=== PATIENT | female | born 1965 | race Caucasian/White ===

== ENCOUNTER 2017-12-11 08:03 | Emergency (ER) | payer OTHER ==
--- NOTE | 2017-12-11 09:28 | UC ---
Neck Pain HPI - HPI Summary HPI Summary: 3 days of bilateral neck pain and headache. Reports some intermittent tingling in both her hands. She denies chest pain, shortness of breath, nausea, sweats, fever. Had a similar episode in September 2017 and saw her PCP. Was given baclofen which did not help. She has tried ibuprofen with no effect. Patient has a history of migraine headaches and takes Excedrin at least 3 times daily every day and has done so for years. 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 Patient has had a cardiac workup in the past and reports everything was okay. - History of Current Complaint Chief Complaint: UCHeadaonelia Stated Complaint: HEADACHE JAW PAIN NECK PAIN Time Seen by Provider: 12/11/17 08:10 Hx Obtained From: Patient Onset/Duration: Gradual Onset, Lasting Days, Still Present Severity: Moderate Pain Intensity: 6 Pain Scale Used: 0-10 Numeric Character: Aching, Stiff Aggravating Factors: Movement Alleviating Factors: Nothing Associated Signs & Symptoms: Positive: Headache, Paresthesia - Allergies/Home Medications Allergies/Adverse Reactions: Allergies Allergy/AdvReac Type Severity Reaction Status Date / Time No Known Allergies Allergy Verified 12/11/17 08:23 Home Medications: Home Medications Escitalopram Oxalate [Lexapro 10 mg] 10 mg PO DAILY 12/11/17 [History Confirmed 12/11/17] Ibuprofen TAB* [Motrin TAB* 600 MG] 600 mg PO Q6H PRN 12/11/17 [History Confirmed 12/11/17] PMH/Surg Hx/FS Hx/Imm Hx Neurological History: Migraine Psychological History: Anxiety Other History Of: Negative For: Anticoagulant Therapy - Surgical History Surgical History: Yes Surgery Procedure, Year, and Place: hernia repair, cyst removal - Family History Known Family History: Positive: None Negative: Cardiac Disease, Hypertension - Social History Alcohol Use: Rare Substance Use Type: None Smoking Status (MU): Light Every Day Tobacco Smoker Type: Cigarettes Amount Used/How Often: 2 cig/ day Have You Smoked in the Last Year: Yes - July 2015 Household Exposure Type: Cigarettes Review Of Systems Constitutional: Positive: Negative Skin: Positive: Negative Respiratory: Positive: Negative Cardiovascular: Positive: Negative Gastrointestinal: Positive: Negative Musculoskeletal: Positive: Myalgia Neurological: Positive: Headache, Paresthesia All Other Systems Reviewed And Are Negative: Yes Physical Exam Triage Information Reviewed: Yes Appearance: Well-Appearing, No Pain Distress, Well-Nourished Vital Signs: Initial Vital Signs Temp 98.3 F 12/11/17 08:26 Pulse 62 12/11/17 08:26 Resp 18 12/11/17 08:26 BP 127/62 12/11/17 08:26 Pulse Ox 97 12/11/17 08:26 Vital Signs Reviewed: Yes Eyes: Positive: Conjunctiva Clear ENT: Positive: Hearing grossly normal, Pharynx normal, TMs normal Neck: Positive: Supple, No Lymphadenopathy, Other: - TTP BILATERAL TRAPEZIUS Respiratory Exam: Normal Cardiovascular Exam: Normal Abdomen Description: Positive: Nontender, Soft Musculoskeletal: Positive: ROM Intact, No Edema, Other: - NEG SPURLINGS Neurological: Positive: Alert, Other: - NEG TINELS, NEG PHALENS Psychological: Positive: Age Appropriate Behavior Skin: Negative: rashes Diagnostics - Radiology C-SPINE XRAYS Xray Interpretation: Positive (See Comments) - 1. Old C7 spinous process fracture. 2. Advanced C5-C6 and C6-C7 degenerative spondylosis and facet joint osteoarthritis. 3. Significant osseous foraminal stenosis at C6-C7 on the LEFT. Radiology Interpretation Completed By: Radiologist - EKG Cardiac Rate: Bradycardia - 55BPM Cardiac Rhythm: Sinus: Normal Ectopy: None ST Segment: Normal Neck Pain Course/Dx - Course Course Of Treatment: Discussed with patient my concern for underlying cardiac etiology of her symptoms - although admittedly low suspicion. Advised transfer to ED for further evaluation. Patient declines. Patient understands that we are unable to adequately do a cardiac evaluation here and that declining transfer to the ED may lead to respiratory distress, cardiac arrest, / disability. - Differential Dx/Diagnosis Provider Diagnoses: 1. ADVANCED OSTEOARTHRITIS OF THE NECK WITH RADICULOPATHY. 2. MEDICATION OVERUSE HEADACHE Discharge - Discharge Plan Condition: Stable Disposition: HOME Prescriptions: Cyclobenzaprine TAB* [Flexeril TAB*] 10 mg PO BID PRN #30 tab PRN Reason: Pain Patient Education Materials: Osteoarthritis (ED), Cervical Spinal Stenosis (ED) , Cervical Radiculopathy (ED), Degenerative Disc Disease (ED) Referrals: Vic Chopra, STRIKE OPERATIONS OFFICER [Primary Care Provider] - (KEEP YOUR APPT NEXT WEEK) Additional Instructions: YOU HAVE ADVANCED DEGENERATIVE CHANGES IN YOUR NECK. THIS IS LIKELY CAUSING YOUR SYMPTOMS OF PAIN, STIFFNESS AND TINGLING. WILL TRY FLEXERIL AND PHYSICAL THERAPY. CONSIDER EVAL BY THE [facility] IN [place]. [facility] [address] [place], [place] [id number] YOU ALSO SEEM TO HAVE MEDICATION OVERUSE HEADACHES. YOU MUST STOP TAKING PAIN RELIEVERS CHRONICALLY IN ORDER TO PREVENT THESE. MEDICATION OVERUSE HEADACHE -Medication overuse headache (MOH) is a headache occurring on 15 or more days per month developing as a consequence of regular overuse of acute or symptomatic headache medication for more than 3 months. It usually, but not invariably, resolves after the overuse is stopped. -The precise mechanisms that lead to MOH are still uncertain. However, multiple factors seem to play a role. These include: Genetic predisposition Central sensitization of pain processing Biobehavioral factors -The prevalence of MOH in the general population is approximately 1 to 2 percent , and is higher in women than in men. Migraine is the most common primary headache disorder associated with MOH. -All acute symptomatic medications used to treat headaches have the potential for causing MOH. The risk for MOH appears to vary but is associated with: - opioids - butalbital-containing combination analgesics - aspirin/acetaminophen/caffeine combinations - triptans - nonsteroidal antiinflammatory drugs -The development of MOH is typically preceded by an episodic headache disorder, usually migraine or tension-type headache, that has been treated with frequent and excessive amounts of acute symptomatic medications. MOH often manifests as a headache that is present or develops upon awakening, and commonly occurs daily or nearly daily. -The diagnosis of MOH is based upon clinical impression. A history of analgesic use averaging more than two to three days per week in association with chronic daily headache is suggestive. GO TO ER WITHOUT FAIL IF YOU DEVELOP CHEST PAIN, SHORTNESS OF BREATH, NAUSEA, SWEATS, DIZZINESS OR ANY OTHER CONCERNING SYMPTOMS.
--- NOTE | 2017-12-11 09:54 | RAD ---
Indication: Remote history of C6 spinous process fracture. Headache, jaw pain, neck pain. Comparison: No relevant prior exams available on the [facility] PACS for comparison. Technique: AP, open-mouth odontoid, lateral, and oblique views cervical spine. Report: Straightening relative to normal cervical lordosis. Old C7 spinous process fracture with persistent conspicuous fracture plane. No additional fracture evident. Advanced degenerative spondylosis at C5-C6 and C6-C7. Facet joint osteoarthritis most prominent in the same distribution. Uncinate process spurring and facet joint osteoarthritis results in significant osseous foraminal stenosis at C6-C7 on the LEFT. Unremarkable prevertebral soft tissue contours. IMPRESSION: 1. Old C7 spinous process fracture. 2. Advanced C5-C6 and C6-C7 degenerative spondylosis and facet joint osteoarthritis. 3. Significant osseous foraminal stenosis at C6-C7 on the LEFT.
[2017-12-11 10:50] VITALS: BP 138/74
== END 2017-12-11 10:49 | disposition home or self-care (01) ==
LOC: UCEAST 08:03
DX: M47.22 Other spondylosis with radiculopathy, cervical region (principal); G44.40 Drug-induced headache, not elsewhere classified, not intractable; R20.2 Paresthesia of skin; R00.1 Bradycardia, unspecified; F41.9 Anxiety disorder, unspecified; F17.210 Nicotine dependence, cigarettes, uncomplicated
CPT/HCPCS: 72050; 93005; 99202; G0463

== ENCOUNTER 2018-02-20 08:38 | Observation (INO) | payer OTHER ==
[~2018-02-20 08:38] MED LIST: Buffered Lidocaine 0.9% SYRIN* 5 ML/SYR SYRINGE INTRADERM ONE; Scopolamine 1.5 mg* PATCH TRANSDERM ONE
--- OUTSIDE RECORDS SUMMARY | 2018-02-20 08:43 | XMS REPORT ---
:1965 External Reference #:[id number] Author Organization [facility] Address [address] [address] Phone [phone] Care Team Providers Name Role Phone Risa Hatfield MD Primary Care Physician Unavailable Payers Type Date Identification Numbers Payment Provider Subscriber Commercial Policy Number: [id number] Tomás Dodson Group Number: [id number] [address] PayID: [id number] [place] [address] Problems Date Description Provider Status Onset: 02/08/2016 Anxiety Vic Chopra NP Active Onset: 01/22/2018 Cervical disc disorder Negrito Taylor MD Active Onset: 01/22/2018 Neck pain Negrito Taylor MD Active Family History Date Family Member(s) Problem(s) Comments Mother Heart Disease Stent 2017. 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 ETOH Use Denies alcohol use Smoking Patient is a current smoker, 1-2 cigarettes weekly smokes some days Daily Caffeine Consumes on average 3 cups of regular coffee per day Exercise Type/Frequency Exercises regularly Allergies, Adverse Reactions, Alerts Date Description Reaction Status Severity Comments 01/10/2016 NKDA active Medications Medication Date Status Form Strength Qnty SIG Indications Ordering Provider Cyclobenzaprine 01/23 Active Tablets 10mg 60tab take one Vic HCL s tablet by KELL Chopra mouth twice a day as needed Tramadol HCL 01/09 Active Tablets 50mg 60tab 1-2 tablets R10.9 Vic /2018 s every 8 Nav, BRANCH OFFICE ADMINISTRATOR hours as needed for pain. Diazepam 12/26 Active Tablets 5mg 30tab one tablet F41.9 Vic s twice daily Nav, BRANCH OFFICE ADMINISTRATOR as needed Escitalopram 08/19 Active Tablets 10mg 45tab 1 1/2 tabs F41.9 Vic Oxalate s daily. Nav, BRANCH OFFICE ADMINISTRATOR Carpal Tunnel 02/07 Active Misc 1unit wear splint R20.2 Vic Wrist s on right Nav, BRANCH OFFICE ADMINISTRATOR Stabilizer/Small wrist while /Medium sleeping. Excedrin Active Tablets 250-250-6 as needed Unknown Migraine 5mg Ibuprofen Active Capsules 200mg as needed Unknown / Pepto-Bismol Active Suspension 262mg/15M as needed Unknown L Emergen-C Active Packet as needed Unknown Vitamin C Meloxicam 12/26 Hx Tablets 7.5mg 60tab 1 -2 tablet M50.10 Vic s by mouth Nav, BRANCH OFFICE ADMINISTRATOR - once daily 01/22 as needed Gabapentin 12/26 Hx Capsules 300mg 60cap 1 by mouth M50.10 Vic s QHS. If Nav, BRANCH OFFICE ADMINISTRATOR - tolerating 01/22 well start taking 1 cap bid after 4 days. Baclofen 09/23 Hx Tablets 10mg 30tab take 1/2 Vic s tab every 8 Nav, BRANCH OFFICE ADMINISTRATOR - hours as 01/22 needed for muscle spasm Diazepam 02/14 Hx Tablets 2mg 60tab take 1 F41.9 Vic s tablet Nav, BRANCH OFFICE ADMINISTRATOR - three times 12/26 daily needed-anxi ety Paroxetine HCL 07/03 Hx Tablets ER 12.5mg 30tab one tablet N95.1 Vic ER 24HR s at at Nav, BRANCH OFFICE ADMINISTRATOR - bedtime 02/14 Tramadol HCL 07/03 Hx Tablets 50mg 120ta 1-2 tablets R10.9 Vic bs every 6 Nav, BRANCH OFFICE ADMINISTRATOR - hours as 05/06 needed for pain. Omeprazole 04/[address] 20mg 30cap 1 by mouth R10.10 Vic s once daily Nav, BRANCH OFFICE ADMINISTRATOR - 02/14 Hydroxyzine 02/07 Hx Capsules 25mg 60cap 1-2 caps by F41.9 Vic Pamoate /2015 s mouth four Nav, BRANCH OFFICE ADMINISTRATOR - times a day 02/14 as needed for anxiety Venlafaxine HCL 02/07 Hx Tablets 75mg 30tab take 1 N95.1 Vic s tablet Nav, BRANCH OFFICE ADMINISTRATOR - daily 07/03 Venlafaxine HCL 01/09 Hx Tablets 37.5mg 30tab 1 by mouth F41.9 Vic s every day Nav, BRANCH OFFICE ADMINISTRATOR - 02/07 Flonase Allergy Hx Suspension 50mcg/Act spray 1 Unknown Relief /0000 spray in - each 02/14 nostr /2016 twice daily Immunizations CPT Code Status Date Vaccine Lot # [id number] Given 08/19/2017 Influenza Virus Vaccine, Quadrivalent, Split, [id number] Preservative Free [id number] Given 07/03/2016 Influenza Virus Vaccine, Quadrivalent, Split, [id number] Preservative Free Vital Signs Date Vital Result Comment 02/03/2018 Height 63 inches 5'3" Weight 128.50 lb Heart Rate 71 /min BP Systolic 130 mmHg BP Diastolic 82 mmHg Body Temperature 96.3 F O2 % BldC Oximetry 98 % BMI (Body Mass Index) 22.8 kg/m2 01/23/2018 Weight 127.00 lb Heart Rate 75 /min BP Systolic 138 mmHg BP Diastolic 98 mmHg Body Temperature 96.9 F O2 % BldC Oximetry 92 % 01/22/2018 Height 63 inches 5'3" Weight 131.00 lb BP Systolic Sitting 140 mmHg BP Diastolic Sitting 100 mmHg Pain Level 9 BMI (Body Mass Index) 23.2 kg/m2 12/26/2017 Weight 131.50 lb Heart Rate 68 /min BP Systolic 126 mmHg BP Diastolic 70 mmHg Body Temperature 97.6 F O2 % BldC Oximetry 96 % 09/23/2017 Height 63.25 inches 5'3.25" Weight 129.00 lb Heart Rate 61 /min BP Systolic Sitting 120 mmHg BP Diastolic Sitting 80 mmHg Body Temperature 97.4 F O2 % BldC Oximetry 97 % BMI (Body Mass Index) 22.7 kg/m2 08/19/2017 Height 63.25 inches 5'3.25" Weight 127.00 lb Heart Rate 62 /min BP Systolic Sitting 136 mmHg BP Diastolic Sitting 94 mmHg BP Systolic Recheck 128 mmHg BP Diastolic Recheck 84 mmHg O2 % BldC Oximetry 99 % BMI (Body Mass Index) 22.3 kg/m2 05/06/2017 Weight 117.00 lb Heart Rate 68 /min BP Systolic Sitting 136 mmHg BP Diastolic Sitting 88 mmHg Pain Level 5 L buttock Peak Flow Meter 96 02/14/2017 Weight 124.00 lb Heart Rate 67 /min BP Systolic Sitting 134 mmHg BP Diastolic Sitting 84 mmHg O2 % BldC Oximetry 98 % 07/03/2016 Weight 121.00 lb Heart Rate 62 /min BP Systolic Sitting 136 mmHg BP Diastolic Sitting 84 mmHg Respiratory Rate 15 /min Body Temperature 98.5 F O2 % BldC Oximetry 99 % 04/10/2016 Weight 130.00 lb with shoes Heart Rate 71 /min BP Systolic Sitting 120 mmHg BP Diastolic Sitting 76 mmHg Body Temperature 96.9 F O2 % BldC Oximetry 99 % 03/07/2016 Weight 129.00 lb Heart Rate 54 /min BP Systolic Sitting 122 mmHg BP Diastolic Sitting 82 mmHg Respiratory Rate 15 /min Body Temperature 98.5 F 02/08/2016 Weight 127.25 lb Heart Rate 62 /min BP Systolic Sitting 132 mmHg BP Diastolic Sitting 80 mmHg O2 % BldC Oximetry 98 % 01/10/2016 Height 63 inches 5'3" Weight 122.50 lb Heart Rate 55 /min BP Systolic Sitting 134 mmHg BP Diastolic Sitting 78 mmHg Body Temperature 97.0 F O2 % BldC Oximetry 99 % BMI (Body Mass Index) 21.7 kg/m2 Results Test Date Test Result H/L Range Note Lipid Profile (Trig/Chol/HDL) 08/12/2017 Triglycerides 60 mg/dL 1 Cholesterol 171 mg/dL 2 HDL Cholesterol 74.8 mg/dL 3 LDL Cholesterol 84 mg/dL 4 Basic Metabolic Panel 08/12/2017 Sodium 139 mmol/L 133-145 Potassium 4.2 mmol/L 3.5-5.0 Chloride 106 mmol/L 101-111 Co2 Carbon Dioxide 30 mmol/L 22-32 Anion Gap 3 mmol/L 2-11 Glucose 82 mg/dL 70-100 Blood Urea Nitrogen 15 mg/dL 6-24 Creatinine 0.64 mg/dL 0.51-0.95 BUN/Creatinine Ratio 23.4 High 8-20 Calcium 9.1 mg/dL 8.6-10.3 Egfr Non- 96.7 >60 Egfr 124.4 >60 5 Laboratory test finding 04/10/2016 Amylase 32 U/L 29-103 Lipase 22 U/L 11.0-82.0 Comp Metabolic Panel 04/10/2016 Sodium 136 mmol/L 133-145 Potassium 4.3 mmol/L 3.5-5.0 Chloride 104 mmol/L 101-111 Co2 Carbon Dioxide 27 mmol/L 22-32 Anion Gap 5 mmol/L 2-11 Glucose 94 mg/dL 70-100 Blood Urea Nitrogen 14 mg/dL 6-24 Creatinine 0.63 mg/dL 0.51-0.95 BUN/Creatinine Ratio 22.2 High 8-20 Calcium 9.2 mg/dL 8.6-10.3 Total Protein 6.8 g/dL 6.4-8.9 Albumin 4.2 g/dL 3.2-5.2 Globulin 2.6 g/dL 2-4 Albumin/Globulin Ratio 1.6 1-3 Total Bilirubin 0.30 mg/dL 0.2-1.0 Alkaline Phosphatase 45 U/L 34-104 Alt 20 U/L 7-52 Ast 24 U/L 13-39 Egfr Non- 98.8 >60 Egfr 127.1 >60 6 CBC Auto Diff 04/10/2016 White Blood Count 6.4 10^3/uL 3.5-10.8 Red Blood Count 4.33 10^6/uL 4.0-5.4 Hemoglobin 13.1 g/dL 12.0-16.0 Hematocrit 39 % 35-47 Mean Corpuscular Volume 91 fL 80-97 Mean Corpuscular Hemoglobin 30 pg 27-31 Mean Corpuscular HGB Conc 33 g/dL 31-36 Red Cell Distribution Width 14 % 10.5-15 Platelet Count 258 10^3/uL 150-450 Mean Platelet Volume 9 um3 7.4-10.4 Abs Neutrophils 3.3 10^3/uL 1.5-7.7 Abs Lymphocytes 2.2 10^3/uL 1.0-4.8 Abs Monocytes 0.7 10^3/uL 0-0.8 Abs Eosinophils 0.2 10^3/uL 0-0.6 Abs Basophils 0.1 10^3/uL 0-0.2 Abs Nucleated RBC 0 10^3/uL Granulocyte % 52.1 % 38-83 Lymphocyte % 34.1 % 25-47 Monocyte % 10.2 % High 1-9 Eosinophil % 2.5 % 0-6 Basophil % 1.1 % 0-2 Nucleated Red Blood Cells % 0.1 Ua Routine 03/07/2016 Ua Specific [place] 1.015 Ua PH 5 Ua Color yellow Ua Appera clear Ua WBC neg Ua Protein neg Ua Glucose neg Ua Ketones neg Ua Bilirubin neg Ua Urobilinogen neg Ua Nitrite neg Ua Occult Blood neg Comp Metabolic Panel 01/16/2016 Sodium 136 mmol/L 133-145 Potassium 4.1 mmol/L 3.5-5.0 Chloride 105 mmol/L 101-111 Co2 Carbon Dioxide 25 mmol/L 22-32 Anion Gap 6 mmol/L 2-11 Glucose 98 mg/dL 70-100 Blood Urea Nitrogen 16 mg/dL 6-24 Creatinine 0.67 mg/dL 0.51-0.95 BUN/Creatinine Ratio 23.9 High 8-20 Calcium 9.5 mg/dL 8.6-10.3 Total Protein 7.0 g/dL 6.4-8.9 Albumin 4.5 g/dL 3.2-5.2 Globulin 2.5 g/dL 2-4 Albumin/Globulin Ratio 1.8 1-3 Total Bilirubin 0.40 mg/dL 0.2-1.0 Alkaline Phosphatase 42 U/L 34-104 Alt 16 U/L 7-52 Ast 20 U/L 13-39 Egfr Non- 92.4 >60 Egfr 118.9 >60 7 Laboratory test finding 01/16/2016 TSH (Thyroid Stim Horm) 0.83 ?IU/mL 0.34-5.60 8 CBC Auto Diff 01/16/2016 White Blood Count 6.4 10^3/uL 3.5-10.8 Red Blood Count 4.50 10^6/uL 4.0-5.4 Hemoglobin 13.6 g/dL 12.0-16.0 Hematocrit 41 % 35-47 Mean Corpuscular Volume 91 fL 80-97 Mean Corpuscular Hemoglobin 30 pg 27-31 Mean Corpuscular HGB Conc 33 g/dL 31-36 Red Cell Distribution Width 14 % 10.5-15 Platelet Count 261 10^3/uL 150-450 Mean Platelet Volume 9 um3 7.4-10.4 Abs Neutrophils 3.6 10^3/uL 1.5-7.7 Abs Lymphocytes 1.9 10^3/uL 1.0-4.8 Abs Monocytes 0.5 10^3/uL 0-0.8 Abs Eosinophils 0.3 10^3/uL 0-0.6 Abs Basophils 0 10^3/uL 0-0.2 Abs Nucleated RBC 0 10^3/uL Granulocyte % 56.2 % 38-83 Lymphocyte % 30.5 % 25-47 Monocyte % 8.1 % 1-9 Eosinophil % 4.6 % 0-6 Basophil % 0.6 % 0-2 Nucleated Red Blood Cells % 0 Laboratory test finding 01/16/2016 Vitamin D Total 25(Oh) 39.1 ng/mL 30- 50 9 Lipid Profile (Trig/Chol/HDL) 01/16/2016 Triglycerides 67 mg/dL 10 Cholesterol 179 mg/dL 11 HDL Cholesterol 82.0 mg/dL 12 LDL Cholesterol 84 mg/dL 13 1 Desirable: <150 Borderline High: 150-199 High: 200-499 Very High: >500 2 Desirable: <200 Borderline High: 200-239 High: >239 3 Low: <40 Desirable: 40-60 High: >60 4 Desirable: <100 Near Optimal: 100-129 Borderline High: 130-159 High: 160-189 Very High: >189 5 Because ethnic data is not always readily available, this report includes an eGFR for both -Americans and non- Americans. The National Kidney Disease Education Program (NKDEP) does not endorse the use of the MDRD equation for patients that are not between the ages of 18 and 70, are , have extremes of body size, muscle mass, or nutritional status, or are non- or non-. According to the National Kidney Foundation, irrespective of diagnosis, the stage of the disease is based on the level of kidney function: Stage Description GFR(mL/min/1.73 m(2)) 1 Kidney damage with normal or decreased GFR 90 2 Kidney damage with mild decrease in GFR 60-89 3 Moderate decrease in GFR 30-59 4 Severe decrease in GFR 15-29 5 Kidney failure <15 (or dialysis) 6 Because ethnic data is not always readily available, this report includes an eGFR for both -Americans and non- Americans. The National Kidney Disease Education Program (NKDEP) does not endorse the use of the MDRD equation for patients that are not between the ages of 18 and 70, are , have extremes of body size, muscle mass, or nutritional status, or are non- or non-. According to the National Kidney Foundation, irrespective of diagnosis, the stage of the disease is based on the level of kidney function: Stage Description GFR(mL/min/1.73 m(2)) 1 Kidney damage with normal or decreased GFR 90 2 Kidney damage with mild decrease in GFR 60-89 3 Moderate decrease in GFR 30-59 4 Severe decrease in GFR 15-29 5 Kidney failure <15 (or dialysis) 7 Because ethnic data is not always readily available, this report includes an eGFR for both -Americans and non- Americans. The National Kidney Disease Education Program (NKDEP) does not endorse the use of the MDRD equation for patients that are not between the ages of 18 and 70, are , have extremes of body size, muscle mass, or nutritional status, or are non- or non-. According to the National Kidney Foundation, irrespective of diagnosis, the stage of the disease is based on the level of kidney function: Stage Description GFR(mL/min/1.73 m(2)) 1 Kidney damage with normal or decreased GFR 90 2 Kidney damage with mild decrease in GFR 60-89 3 Moderate decrease in GFR 30-59 4 Severe decrease in GFR 15-29 5 Kidney failure <15 (or dialysis) 8 FASTING 10 HOUR 9 FASTING 10 HOUR 10 Desirable <150 Borderline high 150-199 High 200-499 Very High >500 11 Desirable <200 Borderline high 200-239 High >239 12 Low <40 Desirable: 40-60 High: >60 13 Desirable: <100 mg/dL Near Optimal: 100-129 mg/dL Borderline High: 130-159 mg/dL High: 160-189 mg/dL Very High: >189 mg/dL Procedures Date CPT Code Description Status Comment 09/11/2017 Mammogram Completed 08/08/2016 Colonoscopy Completed 05/23/2016 Colonoscopy Completed 01/24/2016 13494 Holter Monitor Review (24 hr)dr kang & Completed interp only 01/24/2016 69588 ECG Monitor/Recording W/Visual Completed Superimposition Scanning 01/23/2016 87038 ECG Monitor/Recording W/Visual Completed Superimposition Scanning 01/16/2016 26867 ECG Monitor/Recording W/Visual Completed Superimposition Scanning 01/10/2016 05057 EKG Tracing & Interpretation Completed 07/07/2014 Mammogram Completed Negative Encounters Type Date Location Provider CPT E/M Dx Office Visit 01/23/2018 [facility] [place] [address] F41.9 8:40a - [place] Office Visit 01/22/2018 [facility] [place] [address] M50.122 9:30a Of [facility] MD rBandon M50.123 Office Visit 12/26/2017 9:20a [facility] [place] [address] F41.9 [place] M50.10 Office Visit 09/23/2017 8:40a [facility] [place] [address] F41.9 [place] M54.2 Office Visit 08/19/2017 9:20a [facility] [place] [address] Z00.00 [place] F41.9 Z23 Z12.31 H61.23 Office Visit 05/06/2017 10:20a [facility] [place] [address] F41.9 [place] M54.32 Office Visit 02/14/2017 8:40a [facility] [place] [address] F41.9 [place] Office Visit 07/03/2016 9:40a [facility] [place] [address] R10.9 [place] F41.9 N95.1 Z23 Office Visit 04/10/2016 8:40a [facility] [place] [address] R10.10 [place] F41.9 Office Visit 03/07/2016 9:50a [facility] Ivanna Dupont [address] R10.32 - [place] Office Visit 02/08/2016 8:40a [facility] [place] [address] F41.9 - [place] G47.00 R20.2 Office Visit 01/10/2016 11:00a [facility] [place] [address] R00.2 [place] R53.83 Z13.220 F41.9 Plan of Care Future Appointment(s):02/20/2018 10:30 am - Negrito Taylor MD at [facility]07/23/2018 8:40 am - Vic Chopra NP at [facility] - [facility]02/30/2018 - Vic Chopra NPZ01.818 Encounter for other preprocedural examinationNew Orders:EKGComments:As long as your labs are normal I do not see any contraindications to your surgery.You should avoid aspirin, NSAIDs (ibuprofen, Motrin, aleve) and supplements 7 days prior to the procedure.M50.122 Cervical disc disorder at C5-C6 level with hifmbbabhmingE78.123 Cervical disc disorder at C6-C7 level with radiculopathy
--- OUTSIDE RECORDS SUMMARY | 2018-02-20 08:44 | XMS REPORT ---
:1965 External Reference #:[id number] Author Organization [facility] [email or web address] Address [address] [address] Phone [phone] Care Team Providers Name Role Phone Risa Hatfield MD Primary Care Physician Unavailable Payers Type Date Identification Numbers Payment Provider Subscriber Commercial Policy Number: [id number] Tomás Dodson Group Number: [id number] PayID: [id number] [place] [address] Problems Date Description Provider Status Onset: 02/08/2016 Anxiety Vci Chopra NP Active Onset: 01/22/2018 Neck pain Negrito Taylor MD Active Onset: 01/22/2018 Cervical disc disorder Negrito Taylor MD Active Family History Date Family Member(s) Problem(s) Comments Mother Heart Disease Stent 2017. 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 Diazepam 12/26 Active Tablets 5mg 30tab one tablet F41.9 Vic /2018 s twice daily Nav, [employer] SALES REPRESENTATIVE as needed Escitalopram 08/19 Active Tablets 10mg 45tab 1 1/2 tabs F41.9 Vic Oxalate s daily. Nav, [employer] SALES REPRESENTATIVE Carpal Tunnel 02/07 Active Misc 1unit wear splint R20.2 Vic Wrist s on right Nav, [employer] SALES REPRESENTATIVE Stabilizer/Small wrist while /Medium sleeping. Excedrin Active Tablets 250-250-6 as needed Unknown Migraine 5mg Ibuprofen Active Capsules 200mg as needed Unknown Pepto-Bismol Active Suspension 262mg/15M as needed Unknown L Emergen-C Active Packet as needed Unknown Vitamin C Cyclobenzaprine Active Tablets 10mg take one Unknown HCL tablet by mouth twice a day as needed Meloxicam 12/26 Hx Tablets 7.5mg 60tab 1 -2 tablet M50.10 Vic s by mouth Nav, [employer] SALES REPRESENTATIVE - once daily 01/22 as needed Gabapentin 12/26 Hx Capsules 300mg 60cap 1 by mouth M50.10 Vic s QHS. If Nav, [employer] SALES REPRESENTATIVE - tolerating 01/22 well start taking 1 cap bid after 4 days. Baclofen 09/23 Hx Tablets 10mg 30tab take 12 Vic s tab every 8 Nav, [employer] SALES REPRESENTATIVE - hours as 01/22 needed for muscle spasm Diazepam 02/14 Hx Tablets 2mg 60tab take 1 F41.9 Vic s tablet Nav, [employer] SALES REPRESENTATIVE - three times 12/26 daily needed-anxi ety Paroxetine HCL 07/03 Hx Tablets ER 12.5mg 30tab one tablet N95.1 Vic ER 24HR s at at Nav, [employer] SALES REPRESENTATIVE - bedtime 02/14 Tramadol HCL 07/03 Hx Tablets 50mg 120ta 1-2 tablets R10.9 Vic bs every 6 Nav, [employer] SALES REPRESENTATIVE - hours as 05/06 needed for pain. Omeprazole 04/[address] 20mg 30cap 1 by mouth R10.10 Vic s once daily Nav, [employer] SALES REPRESENTATIVE - 02/14 Hydroxyzine 02/07 Hx Capsules 25mg 60cap 1-2 caps by F41.9 Vic Pamoate /2015 s mouth four Nav, [employer] SALES REPRESENTATIVE - times a day 02/14 as needed for anxiety Venlafaxine HCL 02/07 Hx Tablets 75mg 30tab take 1 N95.1 Vic s tablet Nav [employer] SALES REPRESENTATIVE - daily 07/03 Venlafaxine HCL 01/09 Hx Tablets 37.5mg 30tab 1 by mouth F41.9 Vic /2015 s every day Nav, [employer] SALES REPRESENTATIVE - 02/07 Flonase Allergy 00 Hx Suspension 50mcg/Act spray 1 Unknown Relief /0000 spray in - each 02/14 nostr /2016 twice daily Immunizations CPT Code Status Date Vaccine Lot # [id number] Given 08/19/2017 Influenza Virus Vaccine, Quadrivalent, Split, [id number] Preservative Free [id number] Given 07/03/2016 Influenza Virus Vaccine, Quadrivalent, Split, [id number] Preservative Free Vital Signs Date Vital Result Comment 01/22/2018 Height 63 inches 5'3" Weight 131.00 [...] Non- 96.7 >60 Egfr 124.4 >60 5 CBC Auto Diff 04/10/2016 White Blood Count [...] 0-2 Nucleated Red Blood Cells % 0.1 Comp Metabolic Panel 04/10/2016 Sodium 136 mmol/L [...] Non- 98.8 >60 Egfr 127.1 >60 6 Laboratory test finding 04/10/2016 Amylase 32 U/L 29-103 Lipase 22 U/L 11.0-82.0 Ua Routine 03/07/2016 Ua Specific Rohwer 1.015 Ua PH 5 Ua Color yellow Ua Appera clear Ua WBC neg Ua Protein neg Ua Glucose neg Ua Ketones neg Ua Bilirubin neg Ua Urobilinogen neg Ua Nitrite neg Ua Occult Blood neg Lipid Profile (Trig/Chol/HDL) 01/16/2016 Triglycerides 67 mg/dL 7 Cholesterol 179 mg/dL 8 HDL Cholesterol 82.0 mg/dL 9 LDL Cholesterol 84 mg/dL 10 Laboratory test finding 01/16/2016 Vitamin D Total 25(Oh) 39.1 ng/mL 30- 50 11 CBC Auto Diff 01/16/2016 White Blood Count [...] Cells % 0 Laboratory test finding 01/16/2016 TSH (Thyroid Stim Horm) 0.83 ?IU/mL 0.34-5.60 12 Comp Metabolic Panel 01/16/2016 Sodium 136 mmol/L [...] Egfr Non- 92.4 >60 Egfr 118.9 >60 13 1 Desirable: <150 Borderline High: 150-199 [...] 5 Kidney failure <15 (or dialysis) 7 Desirable <150 Borderline high 150-199 High 200-499 Very High >500 8 Desirable <200 Borderline high 200-239 High >239 9 Low <40 Desirable: 40-60 High: >60 10 Desirable: <100 mg/dL Near Optimal: 100-129 mg/dL Borderline High: 130-159 mg/dL High: 160-189 mg/dL Very High: >189 mg/dL 11 FASTING 10 HOUR 12 FASTING 10 HOUR 13 Because ethnic data is not always readily [...] 15-29 5 Kidney failure <15 (or dialysis) Procedures Date CPT Code Description Status Comment 09/11/2017 Mammogram Completed 08/08/2016 Colonoscopy Completed 05/23/2016 Colonoscopy Completed 01/24/2016 70132 Holter Monitor Review (24 hr)dr review & Completed interp only 01/24/2016 06812 ECG Monitor/Recording W/Visual Completed Superimposition Scanning 01/23/2016 74899 ECG Monitor/Recording W/Visual Completed Superimposition Scanning 01/16/2016 89617 ECG Monitor/Recording W/Visual Completed Superimposition Scanning 01/10/2016 15772 EKG Tracing & Interpretation Completed 07/07/2014 Mammogram Completed Negative Encounters Type Date Location Provider CPT E/M Dx Office Visit 12/26/2017 9:20a [facility] [place] [address] F41.9 [place] M50.10 Office Visit 09/23/2017 8:40a [facility] [place] [address] F41.9 [place] M54.2 Office Visit 08/19/2017 9:20a [facility] - Vic Chopra, KELL [address] Z00.00 [place] F41.9 Z23 Z12.31 H61.23 Office Visit 05/06/2017 10:20a [facility] [place] [address] F41.9 [place] M54.32 Office Visit 02/14/2017 8:40a [facility] [place] [address] F41.9 [place] Office Visit 07/03/2016 9:40a [facility] [place] [address] R10.9 [place] F41.9 N95.1 Z23 Office Visit 04/10/2016 8:40a [facility] [place] [address] R10.10 [place] F41.9 Office Visit 03/07/2016 9:50a [facility] Medicine Ivannainna Rizzoan, [address] R10.32 - [place] M.D. Office Visit 02/08/2016 8:40a [facility] [place] [address] F41.9 - [place] G47.00 R20.2 Office Visit 01/10/2016 11:00a [facility] [place] [address] R00.2 [place] R53.83 Z13.220 F41.9 Plan of Care Future Appointment(s):01/23/2018 8:40 am - Vic Chopra NP at [facility] - [place]16/18/2018 - Vassilios Dimopoulos, MDM50.122 Cervical disc disorder at C5-C6 level with acmrvhfalgfskV66.123 Cervical disc disorder at C6- C7 level with radiculopathyFollow up:RV in 1 week mlfrlnO07.2 Cervicalgia
[2018-02-20] MEDS ORDERED: ceFAZolin 2 GM PREMIX (*) 2 GM/50 ML BAG IVPB ONE (09:10)
[2018-02-20] MEDS ORDERED: Scopolamine 1.5 mg* PATCH ONE (09:10)
[2018-02-20] MEDS ORDERED: Bacitracin IV* 50,000 UNITS INJ ONE (10:26)
[2018-02-20] MEDS ORDERED: Lidocaine 1% MPF wEPI 200,000* 30 ML SDV ONE (10:26)
[2018-02-20] MEDS ORDERED: Thrombin 5,000 UNITS* 1 APPLIC KIT - topical use - TOPICAL ONE (10:26)
[2018-02-20] MEDS ORDERED: fentaNYL* 50 MCG/ML 2 ML VIAL (100 MCG VIAL) ONE ×5 (10:46→15:33)
[2018-02-20] MEDS ORDERED: Lidocaine 2% PF * 5 ML VIAL ONE (10:47)
[2018-02-20] MEDS ORDERED: Rocuronium* 10 MG/ML VIAL ONE (10:47)
[2018-02-20] MEDS ORDERED: Dexamethasone IV* 4 MG/ML 1 ML (4 MG) ONE (10:47)
[2018-02-20] MEDS ORDERED: Propofol* 10 MG/ML 20 ML BTL IV PUSH ONE (10:47)
[2018-02-20] MEDS ORDERED: Ketorolac INJ* 30 MG/ML 1 ML VIAL IV PRN (11:40)
[2018-02-20] MEDS ORDERED: oxyCODONE TAB* 5 MG TAB PO PRN (11:40)
[2018-02-20] MEDS ORDERED: Acetaminophen TAB* 325 MG PO PRN ×2 (11:40→14:18)
[2018-02-20] MEDS ORDERED: Naloxone* 0.4 MG/ML 1 ML VIAL IV PRN (11:40)
[2018-02-20] MEDS ORDERED: DiMENhydriNATE IV* 50 MG/ML VIAL IV PUSH PRN (11:40)
[2018-02-20] MEDS ORDERED: fentaNYL* 50 MCG/ML 5 ML VIAL (250 MCG VIAL) ONE (12:35)
--- NOTE | 2018-02-20 14:14 | RAD ---
INDICATION: Anterior cervical discectomy and fusion. COMPARISONS: None relevant TECHNIQUE: Fluoroscopy was provided for a surgical procedure. Total fluoroscopy time is: 25.9 seconds FINDINGS: Spot images demonstrate an anterior cervical fusion plate at C5, C6, and C7 with intervertebral graft material. IMPRESSION: FLUOROSCOPY WAS PROVIDED FOR A SURGICAL PROCEDURE CPT II Codes: G9500
[2018-02-20] MEDS ORDERED: DiMENhydriNATE IV* 50 MG/ML VIAL ONE (14:16)
[2018-02-20] MEDS ORDERED: Magnesium Hydroxide LIQ* 30 ML UDC PO PRN (14:18)
[2018-02-20] MEDS: fentaNYL* 50 MCG/ML 2 ML VIAL (100 MCG VIAL) IV PRN ×5 (14:27→15:34)
[2018-02-20] MEDS ORDERED: Ondansetron SYRINGE* 4 MG/2 ML SYRINGE (from 40mg/20ml vial) IV ONE (14:30)
[2018-02-20] MEDS ORDERED: Diazepam TAB(*) 5 MG PO PRN (14:33)
[2018-02-20] MEDS ORDERED: Ketorolac INJ* 30 MG/ML 1 ML VIAL ONE (14:39)
[2018-02-20] MEDS ORDERED: Benzocaine/Menthol LOZ* 1 LOZENGE PO PRN (14:41)
[2018-02-20] MEDS ORDERED: oxyCODONE TAB* 5 MG TAB ONE (14:52)
[2018-02-20] MEDS ORDERED: Acetaminophen TAB* 325 MG ONE (15:03)
[2018-02-20] MEDS: HYDROcodone/ACETAMIN 5-325 MG* 1 TAB PO PRN (19:39)
[2018-02-21] MEDS: HYDROcodone/ACETAMIN 5-325 MG* 1 TAB PO PRN ×5 (00:36→19:28)
--- NOTE | 2018-02-21 04:14 | OP ---
DATE OF OPERATION: 02/20/18 - ROOM #332 DATE OF : 61 SURGEON: Negrito Taylor M.D. HAIRSPRING FABRICATION SUPERVISOR: ZAHRAA Arvizu. The case was done with the assistance of a surgical PA because of the complexity of the case. ANESTHESIA: General. PRE-OP DIAGNOSIS: Degenerative disk disease with kyphosis. POST-OP DIAGNOSIS: Degenerative disk disease with kyphosis. OPERATIVE PROCEDURE: The patient underwent anterior cervical diskectomy and fusion at C5-6 and C6-7 with PEEK interbody cages, DBX and plate. ESTIMATED BLOOD LOSS: 200 cc. COMPLICATIONS: None. SUMMARY: The patient is a very pleasant 53-year-old female with complaints of neck pain radiating from both shoulders with right upper extremity numbness with MRI findings consistent with degenerative disk disease at the cervical spine, was at the C5-6 and C6-7 with the vascular blood losses and kyphosis. After failing conservative treatment, she was offered the option of surgical intervention in the form of anterior cervical diskectomy and fusion at C5-6 and C6-7. Discussed extensively with the patient and her and the rest of her family regarding expectations, limitations, and possible complications of the procedure with complications including, but not limited to bleeding, infection, risk of damage to adjacent structures, paralysis, , need for additional procedures, anesthesia risk, stroke, blindness, cancer, instability, hardware failure, adjacent level disease, pseudoarthrosis, need for additional procedures, anesthesia risks, coronary syndrome, vocal cord paralysis, need for tracheostomy or gastrostomy. The patient and her were agreeable to proceed with surgery. Informed consent was obtained. The patient and her understood that her condition may not improve and in fact may get worse after the surgery, she may need to have additional procedure for this in the future. She also understood that intraoperative plan may be modified according to intraoperative findings and conditions. DESCRIPTION OF PROCEDURE: The patient was brought to the operating room and was placed under general anesthesia by the anesthesia team. She was carefully positioned supine on surgical table and all bony prominences were meticulously padded. Her skin was prepped and draped in the standard fashion and after appropriate surgical pause and patient identification, the right paramedian incision was marked on the skin at the level of C5-6 and C6-7 after confirmation with intraoperative fluoroscopic imaging. The incision site was infiltrated with local anesthetic and a #10 surgical blade was used to incise the skin. The incision was carried down with Bovie cautery and after placement of self-retaining retractors, the platysma was gently divided with Metzenbaum scissors and Bovie. The plane between the medial border of the sternocleidomastoid and the medial structures were then gently developed with sharp and blunt dissection until the anterior part of the spine was accessed. Self-retaining retractors were introduced into the field and Jackson pins were placed in the vertebral bodies of C5, C6, and C7 after confirmation of correct operative level with intraoperative fluoroscopic imaging. Of note, Apfelbaum maneuver was performed after placement of the self-retraining retractors. A standard diskectomy was performed at C6-7 and C5-6 level after incising the annulus fibrosus with #15 surgical blade. The diskectomy was carried out with the use of pituitary rongeurs, Kerrison punches, curettes, and high-speed drill. Locally harvested bone graft was saved for use in the arthrodesis part of the case. The posterior ligament was divided with Kerrison punches and after the completion of diskectomy and bilateral foraminotomies, the dura was found to be free of any pressure phenomenon. After copious irrigation and confirmation of meticulous hemostasis, two 8 mm PEEK cages were inserted after being filled with locally harvested bone graft during the diskectomy as well as DBX. The Jackson pins were removed. Then, the Medtronic anterior surgical plate was placed and secured with 13 mm titanium screws. Intraoperative fluoroscopic imaging confirmed excellent placement of all hardware. The patient's wound was meticulously inspected and after copious irrigation and meticulous hemostasis, and removal of the self-retaining retractors , the wound was closed by layers with 3-0 Vicryl sutures to approximate the platysma and inverted interrupted 3- 0 Vicryl sutures to approximate the subcutaneous tissue. A #7 KEVIN drain was inserted for a separate stab wound incision and was secured in place. The skin was then covered with Dermabond and sterile dressings. At the end of the procedure, all counts were reported to be correct. The patient remained hemodynamically stable throughout the case. She was then extubated and was transferred to Recovery in excellent condition. The case was done with assistance of the surgical PA because of the complexity of the case. [id number]/[facility] #: [id number] MTDD
[2018-02-21] MEDS ORDERED: Nicotine Patch Removal NOTE FOLLOW UP SCH (06:00)
[2018-02-21] MEDS ORDERED: Nicotine PATCH 21 MG/24 HR* PATCH TRANSDERM SCH (09:00)
[2018-02-21] MEDS ORDERED: Citalopram TAB* 10 MG PO SCH (09:00)
--- NOTE | 2018-02-21 12:23 | RAD ---
INDICATION: Status post anterior discectomy and fusion C5-C7. COMPARISON: Comparison is made with prior x-ray study of the cervical spine from January 22, 2018. TECHNIQUE: AP and lateral views of the cervical spinal were obtained. FINDINGS: C1-C7 are visualized. The patient appears to be status post anterior spinal fusion. There is a metallic plate present anterior to the C5-C7 vertebra is transfixed with 2 surgical screws at each level. There are disc prostheses at the C5-C6 and C6-C7 levels. The vertebra are normal alignment. There is a surgical drain present anterior. There is mild to moderate degenerative disc disease at the C4-C5 and C7-T1 levels. IMPRESSION: STATUS POST ANTERIOR SPINAL FUSION C5-C7 NOTED.
[2018-02-21 18:09] VITALS: BP 152/84
--- NOTE | 2018-02-21 18:29 | PN ---
Progress Note - Progress Note Date of Service: 02/21/18 SOAP: Subjective: []Patient was seen earlier. No events ON. Tolerates PO well. Voids, Ambulates. Neck pain improved. Rt UE numbness improved. Wants to go home. Objective: []VSS, Afebrile. Wound soft, clean, dry. KEVIN drain was removed. Catheter appeared to be intact. Patient tolerated procedure well. AAOx3, ADENIKE, CN II-XII grossly intact. Motor 5/5 all extremities. Sensory grossly intact to light touch. Assessment: [] 53yof POD#1 ACDF C5-6,C6-7 Plan: []Monitor VS, Neurochecks Postop XR revealed good placement of hardware, good alignment of spine. Encourage ambulation, DC home later today. Discussed in extend with patient and her . Juan Manuel Taylor MD
[2018-02-23] MEDS ORDERED: Scopolamine PATCH Remove* 1 NOTE MISC PATCH OFF ONE (06:00)
--- NOTE | 2018-02-25 10:49 | DS ---
DISCHARGE SUMMARY: DATE OF ADMISSION: 02/20/18 DATE OF DISCHARGE: 02/21/18 PREOPERATIVE DIAGNOSIS: Degenerative disk disease with kyphosis. POSTOPERATIVE DIAGNOSIS: Degenerative disk disease with kyphosis. PROCEDURE: The patient underwent anterior cervical diskectomy and fusion at C5-6 and C6-7. SUMMARY: The patient is a very pleasant 53-year-old female with complaints of neck pain radiating to both shoulders and right upper extremity numbness with MRI findings consistent with degenerative dis k disease, worse at C5-6 and C6-7 with kyphosis. After failing conservative treatment modalities, e patient was offered the above mentioned surgical intervention, which she underwent on 02/20/18. Th e patient tolerated the procedure well, was able to be transferred to the floor, and on postoperative day#1, the patient was able to tolerate p.o. well. She was voiding, was able to ambulate. Her neck pain has significantly improved as well as right upper extremity numbness and remained neurologicall y intact and she was felt to be able to be discharged to home. DISPOSITION: Home. The patient will be discharged home with discharge instructions and p.o. pain me dications. [id number]/[facility] #: [id number]
== END 2018-02-21 23:34 | disposition home or self-care (01) | DRG 23 ==
LOC: INTOOBSV 08:38 → AA 08:38 → SSU 15:58
PROVIDERS: ADMIT Neurological Surgery; ATTEND Neurological Surgery
DX: M50.122 Cervical disc disorder at C5-C6 level with radiculopathy (principal); M40.202 Unspecified kyphosis, cervical region; F41.9 Anxiety disorder, unspecified; F17.210 Nicotine dependence, cigarettes, uncomplicated; M50.123 Cervical disc disorder at C6-C7 level with radiculopathy; G43.909 Migraine, unspecified, not intractable, without status migrainosus; Z82.49 Family history of ischemic heart disease and other diseases of the circulatory system; Z83.79 Family history of other diseases of the digestive system; Z83.1 Family history of other infectious and parasitic diseases
CPT/HCPCS: 72040; 76001; A9270-GY; C1713; C1776; C9359; G0378; J0690; J1100; J1240; J1885; J2001; J2405; J2704; J3010

== ENCOUNTER 2018-02-22 02:03 | Emergency (ER) | payer OTHER ==
[2018-02-22] MEDS ORDERED: Ondansetron ODT TAB* 4 MG SL PRN (02:48)
[2018-02-22] MEDS ORDERED: Ondansetron ODT TAB* 4 MG ONE (02:54)
[2018-02-22] MEDS ORDERED: HYDROcodone/ACETAMIN 5-325 MG* 1 TAB PO ONE (03:06)
[2018-02-22] MEDS ORDERED: Scopolamine 1.5 mg* PATCH TRANSDERM SCH (04:00)
[2018-02-22] MEDS ORDERED: PROCHLORPERAZINE INJ 5 MG/ML 2 ML VIAL IV PRN (04:32)
[2018-02-22] MEDS ORDERED: NS 0.9% 1000 ML* 2,000 ML IV ONE (04:32)
[2018-02-22] MEDS ORDERED: PROCHLORPERAZINE INJ 5 MG/ML 2 ML VIAL ONE (05:03)
[2018-02-22] MEDS ORDERED: Morphine VIAL* 4 MG/ML VIAL (1 ml vial) IV ONE (05:12)
--- NOTE | 2018-02-22 06:48 | ED ---
Katlyn Rod Emily, scribed Timmy Falk MD on 02/22/18 at 0252 . 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 Pt was [facility] from [facility] [place] [facility] following spinal surgery. Pt reports receiving a patch for nausea that was removed prior to discharge and now feel nauseated and is unable to take pain medications. The patient rates the pain 8/10 in severity. Symptoms aggravated by nothing. Symptoms alleviated by nothing. - History of Current Complaint Chief Complaint: EDNauseaVomitDiarrh Stated Complaint: N/V Hx Obtained From: Patient Onset/Duration: Started Hours Ago, Still Present Timing: Constant, Lasting Hours Severity: Severe Current Severity: Severe Pain Intensity: 8 Aggravating Factor(s): Nothing Alleviating Factor(s): Nothing - Additional Pertinent History Primary Care Physician: SALVATORE - Allergy/Home Medications Allergies/Adverse Reactions: Allergies Allergy/AdvReac Type Severity Reaction Status Date / Time No Known Allergies Allergy Verified 02/22/18 02:15 PMH/Surg Hx/FS Hx/Imm Hx Previously Healthy: No Endocrine/Hematology History: Denies: Hx Anticoagulant Therapy, Hx Diabetes, Hx Systemic Lupus Erythematosus, Hx Thyroid Disease Cardiovascular History: Denies: Hx Congestive Heart Failure, Hx Deep Vein Thrombosis, Hx Hypertension , Hx Pacemaker/ICD, Other Cardiovascular Problems/Disorders Respiratory History: Reports: Other Respiratory Problems/Disorders - Occasional nasal and sinus pressure and congestion Denies: Hx Asthma, Hx Chronic Obstructive Pulmonary Disease (COPD) GI History: Reports: Hx Hiatal Hernia - 1989, Other GI Disorders - Nausea, vomiting at times Denies: Hx Ulcer History: Denies: Hx Dialysis, Hx Renal Disease, Other Problems/Disorders Musculoskeletal History: Reports: Other Musculoskeletal History - cervical radiculopathy, cervical disc disorder at C5-C6 & C6-C7 Denies: Hx Rheumatoid Arthritis, Hx Scoliosis Sensory History: Reports: Hx Contacts or Glasses - Glasses and contacts, instructed to wear glasses day of surgery Denies: Hx Hearing Aid Opthamlomology History: Reports: Hx Contacts or Glasses - Glasses and contacts, instructed to wear glasses day of surgery Neurological History: Reports: Hx Headaches - Pt states is from her neck pain, Other Neuro Impairments/Disorders - Shovelers fracture back of C6 20 yrs ago Psychiatric History: Reports: Hx Anxiety - on medication Denies: Hx Depression, Hx Panic Disorder, Other Psychiatric Issues/Disorders - Cancer History Hx Chemotherapy: No Hx Radiation Therapy: No - Surgical History Surgery Procedure, Year, and Place: Hernia repair 1989, ganglion cyst removal wrist 2008 Hx Anesthesia Reactions: No Infectious Disease History: No Infectious Disease History: Denies: Hx Clostridium Difficile, Hx Hepatitis, Hx Human Immunodeficiency Virus (HIV), Hx of Known/Suspected MRSA, Hx Shingles, Hx Tuberculosis, History Other Infectious Disease, Traveled Outside the [place] in Last 30 Days - Family History Known Family History: Positive: None Negative: Cardiac Disease, Hypertension - Social History Occupation: Employed Full-time Lives: With Family Alcohol Use: Rare Substance Use Type: Reports: Marijuana Substance Use Comment - Amount & Last Used: occasional Smoking Status (MU): Light Every Day Tobacco Smoker Type: Cigarettes Amount Used/How Often: 2 cig/ day Have You Smoked in the Last Year: Yes Review of Systems Negative: Fever Positive: Vomiting, Nausea All Other Systems Reviewed And Are Negative: Yes Physical Exam - Summary Physical Exam Summary: Appearance: Well-appearing, Well-nourished, lying in bed comfortably Skin: Warm, dry, no obvious rash Eyes: sclera anicteric, no conjunctiva pallor ENT: mucous membranes moist, pharynx appears normal Neck: Supple, nontender Respiratory: Clear to auscultation, no signs of respiratory distress Cardiovascular: Normal S1, S2. No murmurs. Normal distal pulses in tibial and radial bilaterally. Abdomen: Soft, nontender, normal active bowel sounds present Musculoskeletal: Normal, Strength/ROM Intact Neurological: A&Ox3, awake and alert, mentation is normal, speech is fluent and appropriate Psychiatric: affect is normal, does not appear anxious or depressed Triage Information Reviewed: Yes Vital Signs On Initial Exam: Initial Vitals Temp Pulse Resp BP Pulse Ox 98.5 F 81 18 132/79 99 02/22/18 02:12 02/22/18 02:12 02/22/18 02:12 02/22/18 02:12 02/22/18 02:12 Vital Signs Reviewed: Yes Diagnostics - Vital Signs Vital Signs Temp Pulse Resp BP Pulse Ox 02/22/18 02:12 98.5 F 81 18 132/79 99 - Laboratory Lab Statement: Any lab studies that have been ordered have been reviewed, and results considered in the medical decision making process. Re-Evaluation - Re-Evaluation First Eval Re-Evaluation Time: 06:45 Change: Improved Comment: Pt is sleeping, seems more comfortable. Will let her sleep for a while , chart written up for discharge when she awakes. GIGU Course/Dx - Diagnoses Provider Diagnoses: Vomiting Discharge - Sign-Out/Discharge Documenting (check all that apply): Discharge/Admit/Transfer - Discharge Plan Condition: Improved Disposition: HOME Prescriptions: Ondansetron ODT TAB* [Zofran 4 MG Odt TAB*] 8 mg PO Q6H PRN #10 tab.odt PRN Reason: Nausea Promethazine SUPP* [Phenergan Supp*] 25 mg NM Q4H PRN #6 supp PRN Reason: Nausea Referrals: Vic Chopra [employer] MANAGER [Primary Care Provider] - - Billing Disposition and Condition Condition: IMPROVED Disposition: HOME The documentation as recorded by the Katlyn corbett Emily accurately reflects the service I personally performed and the decisions made by me, Timmy Preston MD.
[2018-02-22 09:50] VITALS: BP 138/59
[2018-02-25] MEDS ORDERED: Scopolamine PATCH Remove* 1 NOTE MISC PATCH OFF SCH (04:00)
== END 2018-02-22 09:49 | disposition home or self-care (01) ==
LOC: ED 02:03
DX: R11.10 Vomiting, unspecified (principal); F41.9 Anxiety disorder, unspecified; F17.210 Nicotine dependence, cigarettes, uncomplicated
CPT/HCPCS: 96360; 96374; 96375; 99283; A9270-GY; J0780; J2270

== ENCOUNTER 2018-03-25 07:06 | Emergency (ER) | payer OTHER ==
--- OUTSIDE RECORDS SUMMARY | 2018-03-25 07:16 | XMS REPORT ---
:1965 External Reference #:[id number] Author Organization [facility] Address [address] [place] [address] [place] [address] Phone [phone] Care Team Providers Name Role Phone Risa Hatfield MD Primary Care Physician Unavailable Payers Type Date Identification Numbers Payment Provider Subscriber Commercial Policy Number: [id number] Tomás Dodson Group Number: [id number] [address] PayID: [id number] [place] [address] Problems Date Description Provider Status Onset: 02/08/2016 Anxiety Vic Chopra NP Active Onset: 01/22/2018 Cervical disc disorder Negrito Taylor MD Active Onset: 01/22/2018 Neck pain Negrito Taylor MD Active Family History Date Family Member(s) Problem(s) Comments Mother Heart Disease Stent 2017. 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 Diazepam 12/26 Active Tablets 5mg 30tab one tablet F41.9 Vic s twice daily Nav, FRONT DESK HOST as needed Escitalopram 08/19 Active Tablets 10mg 45tab 1 1/2 tabs F41.9 Vic Oxalate s daily. KELL Chopra Carpal Tunnel 02/07 Active Misc 1unit wear splint R20.2 Vic Wrist s on right KELL Chopra Stabilizer/Small wrist while /Medium sleeping. Excedrin Active Tablets 250-250-6 as needed Unknown Migraine 5mg Ibuprofen Active Capsules 200mg as needed Unknown / Pepto-Bismol Active Suspension 262mg/15M as needed Unknown L Emergen-C Active Packet as needed Unknown Vitamin C Cyclobenzaprine 01/23 Hx Tablets 10mg 60tab take one Vic HCL s tablet by Nav FRONT DESK HOST - mouth twice 03/19 a day needed Meloxicam 12/26 Hx Tablets 7.5mg 60tab 1 -2 tablet M50.10 Vic s by mouth Nav FRONT DESK HOST - once daily 01/22 as needed Gabapentin 12/26 Hx Capsules 300mg 60cap 1 by mouth M50.10 Vic s QHS. If Nav, FRONT DESK HOST - tolerating 01/22 well start taking 1 cap bid after 4 days. Baclofen 09/23 Hx Tablets 10mg 30tab take 12 Vic s tab every 8 Nav, FRONT DESK HOST - hours as 01/22 needed for muscle spasm Diazepam 02/14 Hx Tablets 2mg 60tab take 1 F41.9 Vic s tablet Nav FRONT DESK HOST - three times 12/26 daily needed-anxi ety Paroxetine HCL 07/03 Hx Tablets ER 12.5mg 30tab one tablet N95.1 Vic ER 24HR s at at Nav, FRONT DESK HOST - bedtime 02/14 Tramadol HCL 07/03 Hx Tablets 50mg 120ta 1-2 tablets R10.9 Vic bs every 6 Nav, FRONT DESK HOST - hours as 05/06 needed for pain. Omeprazole 04/[address] 20mg 30cap 1 by mouth R10.10 Vic s once daily Nav FRONT DESK HOST - 02/14 Hydroxyzine 02/07 Hx Capsules 25mg 60cap 1-2 caps by F41.9 Vic Pamoate /2015 s mouth four Nav FRONT DESK HOST - times a day 02/14 as needed for anxiety Venlafaxine HCL 02/07 Hx Tablets 75mg 30tab take 1 N95.1 Vic s tablet Nav FR[employer] DESK HOST - daily 07/03 Venlafaxine HCL 01/09 Hx Tablets 37.5mg 30tab 1 by mouth F41.9 Vic s every day Nav FRONT DESK HOST - 02/07 Flonase Allergy 00 Hx Suspension 50mcg/Act spray 1 Unknown Relief /0000 spray in - each 02/14 nostr /2016 twice daily Immunizations CPT Code Status Date Vaccine Lot # [id number] Given 08/19/2017 Influenza Virus Vaccine, Quadrivalent, Split, [id number] Preservative Free 11020 Given 07/03/2016 Influenza Virus Vaccine, Quadrivalent, Split, [id number] Preservative Free Vital Signs Date Vital Result Comment 03/19/2018 Height 63 inches 5'3" Weight 122.75 lb Heart Rate 66 /min BP Systolic 115 mmHg BP Diastolic 70 mmHg Body Temperature 96.6 F O2 % BldC Oximetry 98 % BMI (Body Mass Index) 21.7 kg/m2 03/04/2018 Height 63 inches 5'3" Weight 128.00 lb BP Systolic Sitting 140 mmHg BP Diastolic Sitting 84 mmHg Body Temperature 98.2 F Pain Level 0 BMI (Body Mass Index) 22.7 kg/m2 02/03/2018 Height 63 inches 5'3" Weight 128.50 [...] Test Date Test Result H/L Range Note Inr/Protime 2018 Inr 0.89 0.77-1.02 1 Laboratory test finding 2018 Partial Thrombo 31.8 seconds 26.0- 36.3 1, 2 Time PTT Basic Metabolic Panel 2018 Sodium 139 mmol/L 139-145 1 Potassium 4.2 mmol/L 3.5-5.0 1 Chloride 104 mmol/L 101-111 1 Co2 Carbon Dioxide 28 mmol/L 22-32 1 Anion Gap 7 mmol/L 2-11 1 Glucose 86 mg/dL 70-100 1 Blood Urea Nitrogen 11 mg/dL 6-24 1 Creatinine 0.67 mg/dL 0.51-0.95 1 BUN/Creatinine Ratio 16.4 8-20 1 Calcium 9.6 mg/dL 8.6-10.3 1 Egfr Non- 91.4 >60 1 Egfr 117.5 >60 1, 3 CBC No Diff 2018 White Blood Count 6.8 10^3/uL 3.5-10.8 1 Red Blood Count 4.40 10^6/uL 4.0-5.4 1 Hemoglobin 13.6 g/dL 12.0-16.0 1 Hematocrit 40 % 35-47 1 Mean Corpuscular Volume 91 fL 80-97 1 Mean Corpuscular Hemoglobin 31 pg 27-31 1 Mean Corpuscular HGB Conc 34 g/dL 31-36 1 Red Cell Distribution Width 14 % 10.5-15 1 Platelet Count 266 10^3/uL 150-450 1 Mean Platelet Volume 8.3 um3 7.4-10.4 1 Type & Screen 2018 Patient Blood Type A Positive 1 Antibody Screen NEGATIVE 1 Urinalysis Profile 2018 Urine Color Yellow 1 Urine Appearance Clear 1 Urine Specific [place] 1.014 1.010-1.030 1 Urine pH 5.0 5-9 1 Urine Urobilinogen Negative Negative 1 Urine Ketones Trace Negative 1 Urine Protein Negative Negative 1 Urine Leukocytes Negative Negative 1 Urine Blood Negative Negative 1 Urine Nitrite Negative Negative 1 Urine Bilirubin Negative Negative 1 Urine Glucose Negative Negative 1 CBC Auto Diff 02/03/2018 White Blood Count 6.5 10^3/uL 3.5-10.8 Red Blood Count 4.46 10^6/uL 4.0-5.4 Hemoglobin 13.9 g/dL 12.0-16.0 Hematocrit 41 % 35-47 Mean Corpuscular Volume 91 fL 80-97 Mean Corpuscular Hemoglobin 31 pg 27-31 Mean Corpuscular HGB Conc 34 g/dL 31-36 Red Cell Distribution Width 14 % 10.5-15 Platelet Count 271 10^3/uL 150-450 Mean Platelet Volume 8.3 um3 7.4-10.4 Abs Neutrophils 3.6 10^3/uL 1.5-7.7 Abs Lymphocytes 2.3 10^3/uL 1.0-4.8 Abs Monocytes 0.5 10^3/uL 0-0.8 Abs Eosinophils 0.1 10^3/uL 0-0.6 Abs Basophils 0 10^3/uL 0-0.2 Abs Nucleated RBC 0 10^3/uL Granulocyte % 55.1 % 38-83 Lymphocyte % 35.4 % 25-47 Monocyte % 7.1 % High 0-7 Eosinophil % 2.0 % 0-6 Basophil % 0.4 % 0-2 Nucleated Red Blood Cells % 0 Basic Metabolic Panel 02/03/2018 Sodium 137 mmol/L Low 139-145 Potassium 4.4 mmol/L 3.5-5.0 Chloride 102 mmol/L 101-111 Co2 Carbon Dioxide 28 mmol/L 22-32 Anion Gap 7 mmol/L 2-11 Glucose 91 mg/dL 70-100 Blood Urea Nitrogen 14 mg/dL 6-24 Creatinine 0.73 mg/dL 0.51-0.95 BUN/Creatinine Ratio 19.2 8-20 Calcium 9.5 mg/dL 8.6-10.3 Egfr Non- 83.1 >60 Egfr 106.8 >60 4 Laboratory test finding 02/03/2018 Partial Thrombo Time 33.0 seconds 26.0 -36.3 PTT Inr/Protime 02/03/2018 Inr 0.85 0.77-1.02 Type & Screen 02/03/2018 Patient Blood Type A Positive Antibody Screen NEGATIVE Basic Metabolic Panel 08/12/2017 Sodium 139 mmol/L 133-145 Potassium 4.2 mmol/L 3.5-5.0 Chloride 106 mmol/L 101-111 Co2 Carbon Dioxide 30 mmol/L 22-32 Anion Gap 3 mmol/L 2-11 Glucose 82 mg/dL 70-100 Blood Urea Nitrogen 15 mg/dL 6-24 Creatinine 0.64 mg/dL 0.51-0.95 BUN/Creatinine Ratio 23.4 High 8-20 Calcium 9.1 mg/dL 8.6-10.3 Egfr Non- 96.7 >60 Egfr 124.4 >60 5 Lipid Profile (Trig/Chol/HDL) 08/12/2017 Triglycerides 60 mg/dL 6 Cholesterol 171 mg/dL 7 HDL Cholesterol 74.8 mg/dL 8 LDL Cholesterol 84 mg/dL 9 Laboratory test finding 04/10/2016 Amylase 32 U/L [...] Egfr Non- 98.8 >60 Egfr 127.1 >60 10 CBC Auto Diff 04/10/2016 White Blood Count [...] % 0.1 Ua Routine 03/07/2016 Ua Specific [place] 1.015 Ua PH 5 Ua Color yellow Ua Appera clear Ua WBC neg Ua Protein neg Ua Glucose neg Ua Ketones neg Ua Bilirubin neg Ua Urobilinogen neg Ua Nitrite neg Ua Occult Blood neg Lipid Profile (Trig/Chol/HDL) 01/16/2016 Triglycerides 67 mg/dL 11 Cholesterol 179 mg/dL 12 HDL Cholesterol 82.0 mg/dL 13 LDL Cholesterol 84 mg/dL 14 Laboratory test finding 01/16/2016 Vitamin D Total 25(Oh) 39.1 ng/mL 30- 50 15 CBC Auto Diff 01/16/2016 White Blood Count [...] TSH (Thyroid Stim Horm) 0.83 ?IU/mL 0.34-5.60 16 Comp Metabolic Panel 01/16/2016 Sodium 136 mmol/L [...] Egfr Non- 92.4 >60 Egfr 118.9 >60 17 1 AA 02/20 2 AA 02/20 3 Because ethnic data is not always readily [...] 15-29 5 Kidney failure <15 (or dialysis) 4 Because ethnic data is not always readily [...] 15-29 5 Kidney failure <15 (or dialysis) 5 Because ethnic data is not always [...] 5 Kidney failure <15 (or dialysis) 6 Desirable: <150 Borderline High: 150-199 High: 200-499 Very High: >500 7 Desirable: <200 Borderline High: 200-239 High: >239 8 Low: <40 Desirable: 40-60 High: >60 9 Desirable: <100 Near Optimal: 100-129 Borderline High: 130-159 High: 160-189 Very High: >189 10 Because ethnic data is not always readily [...] 15-29 5 Kidney failure <15 (or dialysis) 11 Desirable <150 Borderline high 150-199 High 200-499 Very High >500 12 Desirable <200 Borderline high 200-239 High >239 13 Low <40 Desirable: 40-60 High: >60 14 Desirable: <100 mg/dL Near Optimal: 100-129 mg/dL Borderline High: 130-159 mg/dL High: 160-189 mg/dL Very High: >189 mg/dL 15 FASTING 10 HOUR 16 FASTING 10 HOUR 17 Because ethnic data is not always readily [...] Procedures Date CPT Code Description Status Comment 02/20/2018 64058 Insertion Interbody Biomechanical Device; Completed Each Interspace 02/20/2018 64607 Anterior Instrumentation 2-3 Vertebral Completed Segments 02/20/2018 18675 additional level cervical below C2 Completed 02/20/2018 22183 arthrodesis,anterior interbody incl disc Completed space prep,discectomy,de 02/20/2018 Autograft For Spine Surgery (Incls Harvesting Completed The Graft) 02/20/2018 Allograft For Spine Surgery, Morselized Completed 02/03/2018 48319 EKG Tracing & Interpretation Completed 09/11/2017 Mammogram Completed 08/08/2016 Colonoscopy Completed 05/23/2016 Colonoscopy Completed 01/24/2016 80034 Holter Monitor Review (24 hr)dr review & Completed interp only 01/24/2016 65638 ECG Monitor/Recording W/Visual Completed Superimposition Scanning 01/23/2016 02845 ECG Monitor/Recording W/Visual Completed Superimposition Scanning 01/16/2016 73097 ECG Monitor/Recording W/Visual Completed Superimposition Scanning 01/10/2016 83738 EKG Tracing & Interpretation Completed 07/07/2014 Mammogram Completed Negative Encounters Type Date Location Provider CPT E/M Dx Office Visit 02/03/2018 10:20a [facility] [place] [address] Z01.818 [place] M50.122 M50.123 F41.9 Office Visit 01/23/2018 8:40a [facility] [place] [address] F41.9 - [place] Office Visit 01/22/2018 9:30a [facility] [place] [address] M50.122 Of [facility] MD [place] M50.123 Office Visit 12/26/2017 9:20a [facility] [place] [address] F41.9 [place] M50.10 Office Visit 09/23/2017 8:40a [facility] [place] [address] F41.9 [place] M54.2 Office Visit 08/19/2017 9:20a [facility] [place] [address] Z00.00 [place] F41.9 Z23 Z12.31 H61.23 Office Visit 05/06/2017 10:20a [facility] [place] [address] F41.9 [place] M54.32 Office Visit 02/14/2017 8:40a [facility] [place] [address] F41.9 [place] Office Visit 07/03/2016 9:40a [facility] [place] [address] R10.9 [place] F41.9 N95.1 Z23 Office Visit 04/10/2016 8:40a [facility] [place] [address] R10.10 [place] F41.9 Office Visit 03/07/2016 9:50a [facility] Internal Medicine Ivanna Dupont, 25084 R10.32 - [place] M.D. Office Visit 02/08/2016 8:40a [facility] [place] [address] F41.9 - [place] G47.00 R20.2 Office Visit 01/10/2016 11:00a [facility] [place] [address] R00.2 [place] R53.83 Z13.220 F41.9 Plan of Care Future Appointment(s):03/26/2018 9:30 am - Negrito Taylor MD at [facility]07/23/2018 8:40 am - Vic Chopra NP at [facility] Internal Medicine - [id number]/13/2018 - Vic Chopra, NPR22.31 Localized swelling, mass and lump, right upper limbNew Xrays:US Soft TissueComments:I am ordering an ultrasound to further evaluate. I will notify you of the results.
--- OUTSIDE RECORDS SUMMARY | 2018-03-25 07:16 | XMS REPORT ---
:1965 External Reference #:[id number] Author Organization [facility] Address [address] [address] Phone [phone] Care Team Providers Name Role Phone Risa Hatfield MD Primary Care Physician Unavailable Payers Type Date Identification Numbers Payment Provider Subscriber Commercial Policy Number: [id number] Tomás Dodson Group Number: [id number] [address] PayID: [id number] [place] [address] Problems Date Description Provider Status Onset: 02/08/2016 Anxiety Vic Chopra NP Active Onset: 01/22/2018 Cervical disc disorder Negrito Taylor MD Active Onset: 01/22/2018 Neck pain Negrito Taylor MD Active Family History Date Family Member(s) Problem(s) Comments Mother Heart Disease Stent 2017. 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 Diazepam 12/26 Active Tablets 5mg 30tab one tablet F41.9 Vic s twice daily Nav, CHICKEN CATCHER as needed Escitalopram 08/19 Active Tablets 10mg 45tab 1 1/2 tabs F41.9 Vic Oxalate s daily. Nav, CHICKEN CATCHER Carpal Tunnel 02/07 Active Misc 1unit wear splint R20.2 Vic Wrist s on right Nav, CHICKEN CATCHER Stabilizer/Small wrist while /Medium sleeping. Excedrin Active Tablets 250-250-6 as needed Unknown Migraine 5mg Ibuprofen Active Capsules 200mg as needed Unknown / Pepto-Bismol Active Suspension 262mg/15M as needed Unknown L Emergen-C Active Packet as needed Unknown Vitamin C Meloxicam 12/26 Hx Tablets 7.5mg 60tab 1 -2 tablet M50.10 Vic s by mouth Nav, CHICKEN CATCHER - once daily 01/22 as needed Gabapentin 12/26 Hx Capsules 300mg 60cap 1 by mouth M50.10 Vic s QHS. If Nav, CHICKEN CATCHER - tolerating 01/22 well start taking 1 cap bid after 4 days. Baclofen 09/23 Hx Tablets 10mg 30tab take 1/2 Vic s tab every 8 Nav, CHICKEN CATCHER - hours as 01/22 needed for muscle spasm Diazepam 02/14 Hx Tablets 2mg 60tab take 1 F41.9 Vic s tablet Nav, CHICKEN CATCHER - three times 12/26 daily needed-anxi ety Paroxetine HCL 07/03 Hx Tablets ER 12.5mg 30tab one tablet N95.1 Vic ER 24HR s at at Nav, CHICKEN CATCHER - bedtime 02/14 Tramadol HCL 07/03 Hx Tablets 50mg 120ta 1-2 tablets R10.9 Vic bs every 6 Nav, CHICKEN CATCHER - hours as 05/06 needed for pain. Omeprazole 04/[address] 20mg 30cap 1 by mouth R10.10 Vic s once daily Nav, CHICKEN CATCHER - 02/14 Hydroxyzine 02/07 Hx Capsules 25mg 60cap 1-2 caps by F41.9 Vic Pamoate /2015 s mouth four Nav, CHICKEN CATCHER - times a day 02/14 as needed for anxiety Venlafaxine HCL 02/07 Hx Tablets 75mg 30tab take 1 N95.1 Vic s tablet Nav, CHICKEN CATCHER - daily 07/03 Venlafaxine HCL 01/09 Hx Tablets 37.5mg 30tab 1 by mouth F41.9 Vic s every day Nav, CHICKEN CATCHER - 02/07 Flonase Allergy Hx Suspension 50mcg/Act spray 1 Unknown Relief /0000 spray in - each 02/14 nostr /2016 twice daily Immunizations CPT Code Status Date Vaccine Lot # [id number] Given 08/19/2017 Influenza Virus Vaccine, Quadrivalent, Split, [id number] Preservative Free 60225 Given 07/03/2016 Influenza Virus Vaccine, Quadrivalent, Split, [id number] Preservative Free Vital Signs Date Vital Result Comment 03/04/2018 Height 63 inches 5'3" Weight 128.00 [...] 1 Urine Appearance Clear 1 Urine Specific [place] 1.014 1.010-1.030 1 Urine pH 5.0 5-9 1 Urine Urobilinogen Negative Negative 1 Urine Ketones Trace Negative 1 Urine Protein Negative Negative 1 Urine Leukocytes Negative Negative 1 Urine Blood Negative Negative 1 Urine Nitrite Negative Negative 1 Urine Bilirubin Negative Negative 1 Urine Glucose Negative Negative 1 Type & Screen 02/03/2018 Patient Blood Type A Positive Antibody Screen NEGATIVE Inr/Protime 02/03/2018 Inr 0.85 0.77-1.02 Laboratory test finding 02/03/2018 Partial Thrombo Time 33.0 seconds 26.0 -36.3 PTT Basic Metabolic Panel 02/03/2018 Sodium 137 mmol/L Low 139-145 Potassium 4.4 mmol/L 3.5-5.0 Chloride 102 mmol/L 101-111 Co2 Carbon Dioxide 28 mmol/L 22-32 Anion Gap 7 mmol/L 2-11 Glucose 91 mg/dL 70-100 Blood Urea Nitrogen 14 mg/dL 6-24 Creatinine 0.73 mg/dL 0.51-0.95 BUN/Creatinine Ratio 19.2 8-20 Calcium 9.5 mg/dL 8.6-10.3 Egfr Non- 83.1 >60 Egfr 106.8 >60 4 CBC Auto Diff 02/03/2018 White Blood Count [...] Blood Cells % 0 Basic Metabolic Panel 08/12/2017 Sodium 139 mmol/L [...] % 0.1 Ua Routine 03/07/2016 Ua Specific [place] 1.015 Ua PH 5 Ua Color yellow [...] Procedures Date CPT Code Description Status Comment 02/03/2018 47073 EKG Tracing & Interpretation Completed 09/11/2017 Mammogram Completed 08/08/2016 Colonoscopy Completed 05/23/2016 Colonoscopy Completed 01/24/2016 85274 Holter Monitor Review (24 hr)dr review & Completed interp only 01/24/2016 46031 ECG Monitor/Recording W/Visual Completed Superimposition Scanning 01/23/2016 05222 ECG Monitor/Recording W/Visual Completed Superimposition Scanning 01/16/2016 97978 ECG Monitor/Recording W/Visual Completed Superimposition Scanning 01/10/2016 95823 EKG Tracing & Interpretation Completed 07/07/2014 Mammogram Completed Negative Encounters Type Date Location Provider CPT E/M Dx Office Visit 02/03/2018 10:20a [facility] [place] [address] Z01.818 [place] M50.122 M50.123 F41.9 Office Visit 01/23/2018 8:40a [facility] [place] [address] F41.9 - [place] Office Visit 01/22/2018 9:30a [facility] [place] [address] M50.122 Of [facility] MD [place] M50.123 Office Visit 12/26/2017 9:20a [facility] Internal Medicine - Vic Chopra, KELL [address] F41.9 [place] M50.10 Office Visit 09/23/2017 8:40a [facility] [place] [address] F41.9 [place] M54.2 Office Visit 08/19/2017 9:20a [facility] [place] [address] Z00.00 [place] F41.9 Z23 Z12.31 H61.23 Office Visit 05/06/2017 10:20a [facility] [place] [address] F41.9 [place] M54.32 Office Visit 02/14/2017 8:40a [facility] [place] [address] F41.9 [place] Office Visit 07/03/2016 9:40a [facility] [place] [address] R10.9 [place] F41.9 N95.1 Z23 Office Visit 04/10/2016 8:40a [facility] [place] [address] R10.10 [place] F41.9 Office Visit 03/07/2016 9:50a [facility] Internal Medicine Ivanna Dupont, 55720 R10.32 - [place] M.D. Office Visit 02/08/2016 8:40a [facility] [place] [address] F41.9 - [place] G47.00 R20.2 Office Visit 01/10/2016 11:00a [facility] [place] [address] R00.2 [place] R53.83 Z13.220 F41.9 Plan of Care Future Appointment(s):03/26/2018 9:30 am - Negrito Taylor MD at [facility]07/23/2018 8:40 am - Vic Chopra NP at [facility] Internal Medicine [facility]03/04/2018 - Negrito Taylor MDZ01.818 Encounter for other preprocedural [id number] Cervical disc disorder at C5-C6 level with radiculopathyNew Xrays:SP Cervical 2-3 VWSFollow up:RV in 1 mobrjX08.123 Cervical disc disorder at C6-C7 level with radiculopathy
[2018-03-25 07:22] VITALS: BP 136/69
--- NOTE | 2018-03-25 07:49 | UC ---
Skin Complaint HPI - HPI Summary HPI Summary: 2 WEEKS OF PALPABLE MASS IN THE RIGHT AXILLA. SAW HER PCP 6 DAYS AGO. THOUGHT MAYBE IT WAS A RESPONSE TO HER RECENT CERVICAL FUSION. HAD ULTRASOUND SCHEDULED FOR 04/10/18. OVER THE PAST 3 DAYS THE MASS HAS INCREASED IN SIZE AND BECOME MUCH MORE PAINFUL. SHE DENIES ANY FEVER. - History of Current Complaint Chief Complaint: UCSkin Time Seen by Provider: 03/25/18 07:15 Stated Complaint: LUMP UNDER ARMPIT Hx Obtained From: Patient Onset/Duration: Gradual Onset, Lasting Weeks, Still Present Timing: Constant Onset Severity: Mild Current Severity: Moderate Pain Intensity: 4 Pain Scale Used: 0-10 Numeric Location: Discrete - RIGHT AXILLA Character: Swelling, Pain Aggravating Factor(s): Touch Alleviating Factor(s): Nothing Associated Signs & Symptoms: Positive: Tenderness. Negative: Vomiting, Fever, Chills, Rash, Red Streaks - Allergy/Home Medications Allergies/Adverse Reactions: Allergies Allergy/AdvReac Type Severity Reaction Status Date / Time No Known Allergies Allergy Verified 03/25/18 07:22 Review of Systems Constitutional: Negative Skin: Other - TENDER MASS RIGHT AXILLA Respiratory: Negative Cardiovascular: Negative Gastrointestinal: Negative All Other Systems Reviewed And Are Negative: Yes PMH/Surg Hx/FS Hx/Imm Hx - Additional Past Medical History Additional PMH: CERVICAL FUSION 02/2018 Other History Of: Negative For: Anticoagulant Therapy - Surgical History Surgical History: Yes Surgery Procedure, Year, and Place: Hernia repair 1989, ganglion cyst removal wrist 2007. february 2018 neck surgery cervical fusion - Family History Known Family History: Positive: None Negative: Cardiac Disease, Hypertension - Social History Alcohol Use: Rare Substance Use Type: Marijuana Substance Use Comment - Amount & Last Used: occasional Smoking Status (MU): Former Smoker Type: Cigarettes Amount Used/How Often: 2 cig/ day Have You Smoked in the Last Year: Yes When Did the Patient Quit Smoking/Using Tobacco: 5 weeks Household Exposure Type: Cigarettes - Immunization History Most Recent Influenza Vaccination: 2017 Most Recent Pneumonia Vaccination: none Physical Exam Triage Information Reviewed: Yes Appearance: Well-Appearing, No Pain Distress, Well-Nourished Vital Signs: Initial Vital Signs Temp 99 F 03/25/18 07:16 Pulse 79 03/25/18 07:16 Resp 18 03/25/18 07:16 BP 136/69 03/25/18 07:16 Pulse Ox 99 03/25/18 07:16 Vital Signs Reviewed: Yes Eyes: Positive: Conjunctiva Clear ENT: Positive: Hearing grossly normal Neck: Positive: Supple Respiratory: Positive: No respiratory distress, No accessory muscle use Cardiovascular: Positive: Pulses Normal Abdomen Description: Positive: Soft Musculoskeletal: Positive: No Edema Neurological: Positive: Alert Psychological: Positive: Age Appropriate Behavior Skin: Positive: Other - TENDER PALPABLE MASS RIGHT AXILLA ~5CM X 3CM WITH SLIGHT OVERLYING ERYTHEMA Diagnostics - Radiology SOFT TISSUE US Xray Interpretation: Positive (See Comments) - THERE IS EXTENSIVE EDEMA OF THE RIGHT AXILLA WITH A LOCULATED FLUID COLLECTION MEASURING UP TO 3.6 CM IN SIZE, CONCERNING FOR CELLULITIS WITH ABSCESS Radiology Interpretation Completed By: Radiologist Course/Dx - Course Course Of Treatment: APPOINTMENT MADE WITH GENERAL SURGEON DR. PALOMO FOR FURTHER EVALUATION OF THE ABSCESS IN THE PATIENT'S AXILLA. THEY ADVISED WE HOLD ON ANTIBIOTIC TREATMENT UNTIL SHE IS SEEN BY THE SURGEON. PATIENT HAS NOT HAD ANYTHING TO EAT TODAY AND I HAVE ADVISED HER TO REMAIN FASTING UNTIL SHE IS SEEN. - Diagnoses Provider Diagnoses: ABCSESS RIGHT AXILLA Discharge - Sign-Out/Discharge Documenting (check all that apply): Discharge/Admit/Transfer - Discharge Plan Condition: Stable Disposition: HOME Patient Education Materials: Abscess (ED) Referrals: Vic Chopra NP [Primary Care Provider] - If Needed Teddy Palomo MD [Medical Doctor] - (APPT TODAY AT 11:30AM) Additional Instructions: ULTRASOUND TODAY INDICATES THAT YOU HAVE AN ABSCESS IN YOUR AXILLA. YOU HAVE AN APPOINTMENT WITH THE SURGEON DR. PALOMO TODAY AT 11:30 AM. WOULD RECOMMEND YOU REMAIN FASTING UNTIL YOU SEE HIM. - Billing Disposition and Condition Condition: STABLE Disposition: Home
--- NOTE | 2018-03-25 08:45 | RAD ---
HISTORY: tender mass in axilla COMPARISONS: None. TECHNIQUE: Multiple transverse and longitudinal ultrasound images were obtained right axilla using grayscale and color Doppler imaging. FINDINGS: There is extensive soft tissue edema within the right axilla. The area of edema measures approximate 5.4 x 3.4 x 4.8 cm in size. Within the deep portion of the area of edema, there is a loculated fluid collection that is lobulated measuring 3.6 x 1.1 x 1.1 cm in size that appears distinct from the vessels without color flow. IMPRESSION: THERE IS EXTENSIVE EDEMA OF THE RIGHT AXILLA WITH A LOCULATED FLUID COLLECTION MEASURING UP TO 3.6 CM IN SIZE, CONCERNING FOR CELLULITIS WITH ABSCESS
== END 2018-03-25 09:27 | disposition home or self-care (01) ==
LOC: UCEAST 07:06
DX: L02.411 Cutaneous abscess of right axilla (principal); Z87.891 Personal history of nicotine dependence
CPT/HCPCS: 99211; G0463

== ENCOUNTER 2018-07-22 10:06 | Emergency (ER) | payer OTHER ==
--- OUTSIDE RECORDS SUMMARY | 2018-07-22 10:13 | XMS REPORT ---
:1965 External Reference #:[id number] Author Organization [employer] Address [address] [place] [address] Phone [phone] Care Team Providers Name Role Phone Vic Chopra NP Primary Care Physician Unavailable Payers Type Date Identification Numbers Payment Provider Subscriber Commercial Policy Number: [id number] Tomás Dodson Group Number: [id number] PayID: [id number] [place] [address] Problems Date Description Provider Status Onset: 02/08/2016 Anxiety Vic Chopra NP Active Onset: 01/22/2018 Cervical disc disorder Negrito Taylor MD Active Onset: 01/22/2018 Neck pain Negrito Taylor MD Active Family History Date Family Member(s) Problem(s) Comments Mother Heart Disease Stent 2017. 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 ETOH Use Denies alcohol use Smoking Patient is a former smoker quit smoking about 4 1/2 weeks ago Daily Caffeine Consumes on average 3 cups of regular coffee per day Exercise Type/Frequency Exercises regularly Allergies, Adverse Reactions, Alerts Date Description Reaction Status Severity Comments 03/28/2018 Augmentin Nausea and Vomiting active Moderate to Severe 01/10/2016 NKDA inactive Medications Medication Date Status Form Strength Qnty SIG Indications Ordering Provider Doxycycline 07/01 Hx Capsules 100mg 20cap one tablet J01.90 Vic Hyclate /2018 s twice KELL Chopra - daily for 07/11 10 days. Cheratussin ac 07/01 Hx Solution 100-10mg/ 473ml 5-10ml J20.9 Vic /2017 5ML every 6 Nav, [employer] - hours as 07/06 needed cough. Diazepam 12/26 Active Tablets 5mg 30tab one tablet F41.9 Vic /2017 s twice Nav, [employer] daily as needed Escitalopram 08/19 Active Tablets 10mg 45tab 1 1/2 tabs F41.9 Risa Oxalate s daily. Marissa Hatfield Carpal Tunnel 02/07 Active Misc 1unit wear R20.2 Vic Wrist /2015 s splint on Nav, KELL Stabilizer/Small right /Medium wrist while sleeping. Excedrin Active Tablets 250-250-6 as needed Unknown Migraine / 5mg Ibuprofen Active Capsules 200mg as needed Unknown /0000 Pepto-Bismol Active Suspension 262mg/15M as needed Unknown /0000 L Emergen-C Active Packet as needed Unknown Vitamin C /0000 Bactrim DS 03/28 Hx Tablets 800-160mg 14tab 1 by mouth Walter. /2017 s twice a Schwsharon lugo M.D. Amoxicillin/Clav 03/25 Hx Tablets 875-125mg 20tab 1 by mouth R22.31 Teddy S. ulanate s twice a [place], Potassium day for 10 MD days Cyclobenzaprine 01/23 Hx Tablets 10mg 60tab take one Vic HCL s tablet by Nav, [employer] - mouth 03/19 twice a day as needed Tramadol HCL 01/09 Hx Tablets 50mg 60tab 1-2 R10.9 Vic s tablets Nav, [employer] every 8 hours as needed for pain. Meloxicam 12/26 Hx Tablets 7.5mg 60tab 1 -2 M50.10 Vic s tablet by Nav, [employer] - mouth once 01/22 daily as needed Gabapentin 12/26 Hx Capsules 300mg 60cap 1 by mouth M50.10 Vic s QHS. If Nav, [employer] - tolerating 01/22 well can start taking 1 cap bid after 4 days. Baclofen 09/23 Hx Tablets 10mg 30tab take 1/2 Vic s tab every Nav, [employer] - 8 hours as 01/22 needed for muscle spasm Diazepam 02/14 Hx Tablets 2mg 60tab take 1 F41.9 Vic /2016 s tablet Nav, [employer] - three 12/26 times daily as needed-anx iety Paroxetine HCL 07/03 Hx Tablets ER 12.5mg 30tab one tablet N95.1 Vic ER 24HR s at at Nav, [employer] - bedtime 02/14 Tramadol HCL 07/03 Hx Tablets 50mg 120ta 1-2 R10.9 Vic /2015 bs tablets Nav, [employer] - every 6 05/06 hours needed for pain. Omeprazole 04/[address] 20mg 30cap 1 by mouth R10.10 Vic s once daily Nav, [employer] - 02/14 Hydroxyzine 02/07 Hx Capsules 25mg 60cap 1-2 caps F41.9 Vic Pamoate s by mouth Nav, [employer] - four times 02/14 a day needed for anxiety Venlafaxine HCL 02/07 Hx Tablets 75mg 30tab take 1 N95.1 Vic /2015 s tablet Nav, [employer] - daily 07/03 Venlafaxine HCL 01/09 Hx Tablets 37.5mg 30tab 1 by mouth F41.9 Vic s every day Nav, [employer] - 02/07 Flonase Allergy 00 Hx Suspension 50mcg/Act spray 1 Unknown Relief /0000 spray in - each 02/14 nostr twice daily Immunizations CPT Code Status Date Vaccine Lot # [id number] Given 08/19/2017 Influenza Virus Vaccine, Quadrivalent, Split, [id number] Preservative Free [id number] Given 07/03/2016 Influenza Virus Vaccine, Quadrivalent, Split, [id number] Preservative Free Vital Signs Date Vital Result Comment 07/01/2018 Height 63 inches 5'3" Weight 120.00 lb Heart Rate 62 /min BP Systolic 117 mmHg BP Diastolic 70 mmHg Body Temperature 97.3 F O2 % BldC Oximetry 96 % BMI (Body Mass Index) 21.3 kg/m2 06/03/2018 Heart Rate 62 /min Respiratory Rate 18 /min Body Temperature 97.8 F 05/23/2018 Height 63 inches 5'3" Weight 122.00 lb BP Systolic Sitting 147 mmHg BP Diastolic Sitting 88 mmHg Pain Level 2 BMI (Body Mass Index) 21.6 kg/m2 04/22/2018 Heart Rate 64 /min Respiratory Rate 16 /min Body Temperature 96.7 F 04/01/2018 Heart Rate 84 /min Respiratory Rate 18 /min Body Temperature 97.4 F 03/26/2018 Height 63 inches 5'3" BP Systolic Sitting 128 mmHg BP Diastolic Sitting 100 mmHg Body Temperature 97.7 F Pain Level 0 03/25/2018 Heart Rate 78 /min BP Systolic Sitting 150 mmHg BP Diastolic Sitting 90 mmHg Respiratory Rate 18 /min Body Temperature 97.0 F 03/19/2018 Height 63 inches 5'3" Weight 122.75 [...] Test Date Test Result H/L Range Note Urinalysis Profile 2018 Urine Color Yellow 1 Urine Appearance Clear 1 Urine Specific [place] 1.014 1.010-1.030 1 Urine pH 5.0 5-9 1 Urine Urobilinogen Negative Negative 1 Urine Ketones Trace Negative 1 Urine Protein Negative Negative 1 Urine Leukocytes Negative Negative 1 Urine Blood Negative Negative 1 Urine Nitrite Negative Negative 1 Urine Bilirubin Negative Negative 1 Urine Glucose Negative Negative 1 Inr/Protime 2018 Inr 0.89 0.77-1.02 1 Laboratory test finding 2018 Partial Thrombo Time 31.8 seconds 26.0 -36.3 1, 2 PTT Basic Metabolic Panel 2018 Sodium 139 [...] A Positive 1 Antibody Screen NEGATIVE 1 Inr/Protime 02/03/2018 Inr 0.85 0.77-1.02 Type & Screen 02/03/2018 Patient Blood Type A Positive Antibody Screen NEGATIVE Laboratory test finding 02/03/2018 Partial Thrombo Time [...] 0-2 Nucleated Red Blood Cells % 0 Lipid Profile (Trig/Chol/HDL) 08/12/2017 Triglycerides 60 mg/dL 5 Cholesterol 171 mg/dL 6 HDL Cholesterol 74.8 mg/dL 7 LDL Cholesterol 84 mg/dL 8 Basic Metabolic Panel 08/12/2017 Sodium 139 mmol/L 133-145 Potassium 4.2 mmol/L 3.5-5.0 Chloride 106 mmol/L 101-111 Co2 Carbon Dioxide 30 mmol/L 22-32 Anion Gap 3 mmol/L 2-11 Glucose 82 mg/dL 70-100 Blood Urea Nitrogen 15 mg/dL 6-24 Creatinine 0.64 mg/dL 0.51-0.95 BUN/Creatinine Ratio 23.4 High 8-20 Calcium 9.1 mg/dL 8.6-10.3 Egfr Non- 96.7 >60 Egfr 124.4 >60 9 Laboratory test finding 04/10/2016 Amylase 32 [...] % 0.1 Ua Routine 03/07/2016 Ua Specific [place] 1.015 Ua PH 5 Ua Color yellow [...] 5 Kidney failure <15 (or dialysis) 5 Desirable: <150 Borderline High: 150-199 High: 200-499 Very High: >500 6 Desirable: <200 Borderline High: 200-239 High: >239 7 Low: <40 Desirable: 40-60 High: >60 8 Desirable: <100 Near Optimal: 100-129 Borderline High: 130-159 High: 160-189 Very High: >189 9 Because ethnic data is not always readily [...] 15-29 5 Kidney failure <15 (or dialysis) 10 Because ethnic data is not always [...] Procedures Date CPT Code Description Status Comment 03/25/2018 42586 US Guide Ndle [facility] Imaging Supervise & Completed Interp 03/25/2018 07977 Ultrasound Breast Limited Completed 03/25/2018 76418 Aspiration With Imaging Guidance Completed 02/20/2018 55313 Insertion Interbody Biomechanical Device; Completed Each Interspace 02/20/2018 95205 Anterior Instrumentation 2-3 Vertebral Completed Segments 02/20/2018 98789 additional level cervical below C2 Completed 02/20/2018 45555 arthrodesis,anterior interbody incl disc Completed space prep,discectomy,de 02/20/2018 61127 Autograft For Spine Surgery (Incls Harvesting Completed The Graft) 02/20/2018 63123 Allograft For Spine Surgery, Morselized Completed 02/03/2018 09794 EKG Tracing & Interpretation Completed 09/11/2017 Mammogram Completed 08/08/2016 Colonoscopy Completed 05/23/2016 Colonoscopy Completed 01/24/2016 94918 Holter Monitor Review (24 hr)dr review & Completed interp only 01/24/2016 86037 ECG Monitor/Recording W/Visual Completed Superimposition Scanning 01/23/2016 85103 ECG Monitor/Recording W/Visual Completed Superimposition Scanning 01/16/2016 72894 ECG Monitor/Recording W/Visual Completed Superimposition Scanning 01/10/2016 36436 EKG Tracing & Interpretation Completed 07/07/2014 Mammogram Completed Negative Encounters Type Date Location Provider CPT E/M Dx Office Visit [facility]2018 [facility] Teddy Palomo, 29170 R22.31 9:45a Of [facility] [address] Office Visit 04/22/2018 [facility] Teddy Palomo, 22581 R22.31 9:15a Of [facility] [address] Office Visit 04/01/2018 [facility] Teddy Palomo, 96994 R22.31 8:30a Of [facility] [address] Office Visit 03/25/2018 [facility] Teddy Palomo, 77961 R22.31 11:30a Of [facility] [address] Office Visit 03/19/2018 [facility] [address] [place] [address] R22.31 8:40a - [place] Office Visit 02/03/2018 [facility] [address] [place] [address] Z01.818 10:20a - [place] M50.122 M50.123 F41.9 Office Visit 01/23/2018 8:40a [facility] [address] [place] [address] F41.9 - [place] Office Visit 01/22/2018 9:30a [facility] [place] 10785 M50.122 Of [facility] [address] MD Brandon M50.123 Office Visit 12/26/2017 9:20a [facility] [address] [place] [address] F41.9 [place] M50.10 Office Visit 09/23/2017 8:40a [facility] [address] [place] [address] F41.9 [place] M54.2 Office Visit 08/19/2017 9:20a [facility] [address] [place] [address] Z00.00 [place] F41.9 Z23 Z12.31 H61.23 Office Visit 05/06/2017 10:20a [facility] [address] [place] [address] F41.9 [place] M54.32 Office Visit 02/14/2017 8:40a [facility] [address] [place] [address] F41.9 [place] Office Visit 07/03/2016 9:40a [facility] [address] [place] [address] R10.9 [place] F41.9 N95.1 Z23 Office Visit 04/10/2016 8:40a [facility] [address] [place] [address] R10.10 [place] F41.9 Office Visit 03/07/2016 9:50a [facility] [address] Internal Medicine Ivanna Dupont, 67023 R10.32 - [place] Office Visit 02/08/2016 8:40a [facility] [address] [place] [address] F41.9 - [place] G47.00 R20.2 Office Visit 01/10/2016 11:00a [facility] [address] [place] [address] R00.2 Mack R53.83 Z13.220 F41.9 Plan of Care Future Appointment(s):07/23/2018 9:00 am - Negrito Taylor MD at [facility] [address]07/23/2018 8:40 am - Vic Chopra NP at [facility] [address] Internal Medicine - Lhmihrxmx46/25/2018 - Vic Chopra NPJ01.90 Acute sinusitis, unspecifiedNew Medication:Doxycycline Hyclate 100 mgComments:Complete the entire course of antibiotics, even if feeling better.Use the flonase, 2 sprays each nostril during this acute episode. You can then use one spray each nostril to see if it helps with your allergies.Follow up:prnJ20.9 Acute bronchitis, unspecifiedNew Medication:Cheratussin ac 100-10 mg/5MLComments:I have prescribed the cough medication to use at night.if your symptoms worsen or persist please letme know.
[2018-07-22 10:32] VITALS: BP 140/85
--- NOTE | 2018-07-22 11:24 | UC ---
Truncal Trauma HPI - HPI Summary HPI Summary: LEANED OVER THE MIDDLE CONSOLE OF HER MINIVAN 4 DAYS AGO AND HEARD A POP. NOW HAS RIGHT RIB CAGE PAIN. WORSE WITH MVMT, COUGH, DEEP INSPIRATION. RECENTLY TREATED WITH DOXY FOR RESP INFECTION. STILL HAS RESIDUAL COUGH BUT STATES OVERALL MUCH BETTER FROM THIS PERSPECTIVE. - History Of Current Complaint Chief Complaint: UCGeneralIllness Stated Complaint: RIB INJURY Time Seen by Provider: 07/22/18 11:12 Hx Obtained From: Patient Onset/Duration: Sudden Onset, Lasting Days, Still Present Onset Of Pain: Immediate Severity Initially: Moderate Severity Currently: Moderate Pain Intensity: 10 Pain Scale Used: 0-10 Numeric Aggravating Factor(s): Movement, Deep Breathing, Cough Alleviating factor(s): Nothing Associated Signs And Symptoms: Positive: Cough. Negative: SOB, Chest Pain, Fever - Allergies/Home Medications Allergies/Adverse Reactions: Allergies Allergy/AdvReac Type Severity Reaction Status Date / Time No Known Allergies Allergy Verified 03/25/18 07:22 PMH/Surg Hx/FS Hx/Imm Hx Previously Healthy: Yes Other History Of: Negative For: Anticoagulant Therapy - Surgical History Surgical History: Yes Surgery Procedure, Year, and Place: Hernia repair 1989, ganglion cyst removal wrist 2007. february 2018- neck surgery cervical fusion - Family History Known Family History: Positive: None Negative: Cardiac Disease, Hypertension - Social History Alcohol Use: Rare Substance Use Type: Marijuana Substance Use Comment - Amount & Last Used: occasional Smoking Status (MU): Light Every Day Tobacco Smoker Type: Cigarettes Amount Used/How Often: 2 cig/ day Have You Smoked in the Last Year: Yes When Did the Patient Quit Smoking/Using Tobacco: 5 weeks Household Exposure Type: Cigarettes - Immunization History Most Recent Influenza Vaccination: 2017 Most Recent Pneumonia Vaccination: none Review of Systems Constitutional: Negative Skin: Negative Respiratory: Cough Cardiovascular: Negative Gastrointestinal: Negative Musculoskeletal: Arthralgia, Decreased ROM All Other Systems Reviewed And Are Negative: Yes Physical Exam Triage Information Reviewed: Yes Appearance: Well-Appearing, No Pain Distress, Well-Nourished Vital Signs: Initial Vital Signs Temp 98.7 F 07/22/18 10:25 Pulse 73 07/22/18 10:25 Resp 20 07/22/18 10:25 BP 140/85 07/22/18 10:25 Pulse Ox 99 07/22/18 10:25 Vital Signs Reviewed: Yes Eyes: Positive: Conjunctiva Clear ENT: Positive: Hearing grossly normal Neck: Positive: Supple Respiratory: Positive: No respiratory distress, No accessory muscle use, Rhonchi - LEFT MID LUNG. Negative: Wheezing Cardiovascular Exam: Normal Abdomen Description: Positive: Soft Musculoskeletal: Positive: No Edema, ROM Limited @ - TRUNCAL ROTATION, Other: - TTP RIGHT RIBS MID AXILLARY LINE. NO EDEMA. NO BRUISING Neurological: Positive: Alert Psychological: Positive: Age Appropriate Behavior Skin: Negative: rashes Diagnostics - Radiology RIGHT RIB XRAYS Xray Interpretation: No Acute Changes Radiology Interpretation Completed By: Radiologist Truncal Trauma Course/Dx - Differential Dx/Diagnosis Provider Diagnoses: RIGHT RIB CONTUSION Discharge - Sign-Out/Discharge Documenting (check all that apply): Patient Departure All imaging exams completed and their final reports reviewed: Yes - Discharge Plan Condition: Stable Disposition: HOME Patient Education Materials: Rib Contusion (ED) Referrals: Vic Chopra COMPUTING SERVICES DIRECTOR [Primary Care Provider] - Additional Instructions: CHEST AND RIB XRAYS TODAY UNREMARKABLE. RIB INJURIES AND FRACTURES: You have been diagnosed as having either bruised or broken ribs. These two injuries are treated in the same way. It will usually take four to six weeks for these injured ribs to heal. Sometimes, rib belts or anesthetic injections of the chest wall help reduce the pain. If you are using a rib belt, you should cough or take a deep breath at least every hour or two to prevent lung complications. You should not engage in any strenuous physical activity until released by your physician. The usual rule is "if it hurts, don't do it." Rib fractures can lead to serious lung complications including lung collapse, hemorrhage, and pneumonia. You should go to the ED if any of the following occur: (1) Fever or chills. (2) Persistent cough, coughing up blood, or shortness of breath. (3) Increasing pain. (4) Weakness, lightheadedness, or fainting. - Billing Disposition and Condition Condition: STABLE Disposition: Home
--- NOTE | 2018-07-22 12:06 | RAD ---
HISTORY: RIGHT RIB PAIN, TRAUMA COMPARISONS: None VIEWS: 5 , Frontal view of the chest with frontal and oblique views of the right hemithorax. FINDINGS: There is no displaced rib fracture or pneumothorax. The visualized lungs are clear. Patient is status post anterior cervical fusion. IMPRESSION: NO DISPLACED RIB FRACTURE OR PNEUMOTHORAX.
== END 2018-07-22 12:35 | disposition home or self-care (01) ==
LOC: UCEAST 10:06
DX: S20.211A Contusion of right front wall of thorax, initial encounter (principal); X58.XXXA Exposure to other specified factors, initial encounter; Y92.9 Unspecified place or not applicable; R05 Cough; Z87.891 Personal history of nicotine dependence
CPT/HCPCS: 99211; G0463